=== PATIENT | male | born 1980 | race Hispanic/Latino ===

== ENCOUNTER 2020-02-17 03:25 | Inpatient (IN) | payer SELFPAY ==
--- NOTE | ~2020-02-17 | XR_ITS ---
EXAMINATION: XR shoulder RT min 2V EXAM DATE: 02/17/2020 04:23 INDICATION: No known recent injury provided at this time. Pain of the right shoulder. TECHNIQUE: The following right shoulder projections obtained: frontal projection with internal rotati on, frontal projection with external rotation, Grashey, and scapular Y view (4+ views). There is no prior study for comparison. FINDINGS: No evidence of right shoulder rotator cuff calcific tendinosis. There is mild acromiocla vicular joint primary osteoarthritis.. Glenohumeral joint unremarkable. There are no acute fractures or dislocations identified. There is no subcutaneous gas. The soft tissue is unremarkable. There are no radiopaque foreign bodies. IMPRESSION: Mild right acromioclavicular joint osteoarthritis. Reviewed, dictated and finalized at location A.
--- NOTE | ~2020-02-17 | US_ITS ---
EXAMINATION: US soft tissue upper back DATE: 02/19/2020 16:26 INDICATION: Right upper back pain/mass TECHNIQUE: Multiple grayscale and Doppler ultrasound images of the region of concern at the posterior right shoulder/back were obtained. COMPARISON: None FINDINGS: Normal appearance to the subcutaneous fat and underlying musculature at the region of concern. No abn ormal masses, fluid collections or hyperemia on color Doppler. IMPRESSION: 1. No etiology identified for reported right upper back pain/mass. Reviewed, dictated and finalized at location A.
--- NOTE | ~2020-02-17 | XR_ITS ---
EXAMINATION: XR chest 1V portable EXAM DATE: 02/17/2020 06:10 INDICATION: Right-sided chest pain. TECHNIQUE: Portable AP frontal chest x-ray was obtained. There is no prior study for comparison. FINDINGS: The lungs are clear. There are no pleural effusions. The cardiomediastinal silhouette is within normal limits. There is no pneumothorax suspected. The bones and soft tissues are unremarkab le. IMPRESSION: No acute cardiopulmonary findings. Reviewed, dictated and finalized at location A.
--- NOTE | ~2020-02-17 | CT_ITS ---
EXAMINATION: CT shoulder RT wo con DATE: 02/18/2020 12:38 INDICATION: Right shoulder pain. TECHNIQUE: Computed tomography (CT) of the right shoulder was performed without intravenous contrast. Automated exposure control and iterative reconstruction technique were employed. The dose-length pro duct was 609.67 mGy-cm. COMPARISON: Right shoulder radiographs 02/17/2020 FINDINGS: Bone alignment is normal. No fracture. There is mild osteoarthritis of acromioclavicular devora int and glenohumeral joint. No glenohumeral joint effusion. There is no asymmetric fatty atrophy of t he rotator cuff muscle bellies. IMPRESSION: 1. Mild polyarticular osteoarthritis. Reviewed, dictated and finalized at location A.
[2020-02-17 03:30] VITALS: BP 153/101; PULSE 87; RESP 18; TEMP 36.3; O2SAT 100
--- NOTE | 2020-02-17 03:55 | ED.EXTPRO ---
HPI - Extremity Problem General Chief complaint: Extremity Problem,Nontraumatic Stated complaint: right shoulder pain Time Seen by Provider: 02/17/20 03:29 Source: RN notes reviewed History of Present Illness HPI Narrative: Patient presents emergency department from home for right shoulder pain. Patient states symptoms began approximately 2 hours ago. States he has pain in the right superior posterior shoulder with muscle spasm present. 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 He denies any known trauma or injury. States this affected his back before as well as his hands are extremities he denies any fevers or chills chest pain shortness of breath or any other symptoms at this time states he took no previous pain medication Related Data Allergies Allergy/AdvReac Type Severity Reaction Status Date / Time No Known Allergies Allergy Unverified 07/10/15 14:44 Review of Systems Review of Systems: Narrative: Gen.: Denies fevers or chills ENT: Denies congestion Respiratory: Denies shortness of breath or cough CV: Denies chest pain or palpitations GI: Denies abdominal pain nausea, emesis or diarrhea Musculoskeletal: See HPI Neuro: Denies numbness, tingling, weakness or focal weakness Skin: Denies rash Except as documented, all other systems reviewed and negative FORMERLY [facility] Past Medical History Medical History (Updated 02/17/20 @ 06:18 by Jesus Manuel Hubbard DO) Raymond disease Social History Social History (Updated 02/17/20 @ 03:57 by Jesus Manuel Hubbard DO) Smoking status: Never smoker Exam Narrative: Exam Narrative: APPEARANCE: No acute distress, nontoxic, resting in bed EYES: EOMI HEENT: Normocephalic, atraumatic, OMM Neck: No midline tenderness to palpation, tender to palpation of the right trapezius muscle with muscle spasm palpated RESPIRATORY: No respiratory distress Clear to auscultation bilaterally with no rhonchi wheezing or rales. CARDIOVASCULAR: Regular rate and rhythm without murmurs rubs or gallops. ABDOMINAL: Soft, nontender, nondistended, no rebound or guarding MUSCULOSKELETAl: Moves all extremities. No clubbing, cyanosis or edema. Tender palpation of the right superior posterior shoulder, pain with movement of the right shoulder no tenderness of the right elbow or wrist, radial pulse 2+, neurovascular intact NEURO: Awake and alert. Following commands, speech normal, no focal deficits SKIN:: Warm, dry. No rashes lesions or abrasions PSYCHIATRIC: Normal affect/mood, Course Course Emergency Course: Discussed Dr. eBdoya presentation work-up. Agrees with admission at this time Discussed with patient and family results of workup and diagnosis. Discussed need for admission. Patient and family understand and agree to current treatment plan Vital Signs Vital signs: Vital Signs Temperature 97.3 F L 02/17/20 03:30 Pulse Rate 87 02/17/20 03:30 Respiratory Rate 18 02/17/20 03:30 Blood Pressure 153/101 H 02/17/20 03:30 Pulse Oximetry 100 02/17/20 03:30 Temperature 97.3 F L 02/17/20 03:30 Pulse Rate 87 02/17/20 03:30 Respiratory Rate 18 02/17/20 03:30 Blood Pressure 153/101 H 02/17/20 03:30 Pulse Oximetry 100 02/17/20 03:30 MDM - Extremity (Nontraumatic) Lab Data Result diagrams: 02/17/20 04:03 02/17/20 04:03 Labs: Lab Results 02/17/20 02/17/20 Range/Units 04:03 04:03 WBC 18.2 H (4.5-10.0) K/mm3 RBC 5.17 (4.6-6.20) M/mm3 Hgb 16.4 (14.0-18.0) g/dL Hct 47.2 (42.0-52.0) % MCV 91.3 (80-100) fl MCH 31.7 (26-34) pg MCHC 34.7 (32-36) g/dl RDW 12.8 (11.5-14.5) % Plt Count 343 (150-375) k/mm3 MPV 8.8 (7.4-10.4) fl Immature Gran % (Auto) 0.5 (0-0.5) % Neut % (Auto) 66.3 (45.5-73.1) % Lymph % (Auto) 23.5 (18.3-44.2) % [place] % (Auto) 8.0 (2.6-8.5) % Eos % (Auto) 1.3 (0-4.4) % Baso % (Auto) 0.4 (0.2-1.2) % Lymph # (Auto) 4.2
[2020-02-17] MEDS: MORPHINE SULFATE (*CRX) 4 MG/ML INJ IV PUSH ×5 (04:03→23:25)
[2020-02-17 04:11] LABS: Basophils Absolute Auto 0.1 K/mm3 (0.0-0.1); Basophils Percent Auto 0.4 % (0.2-1.2); Eosinophils Absolute Auto 0.2 K/mm3 (0-0.3); Eosinophils Percent Auto 1.3 % (0-4.4); Hematocrit 47.2 % (42.0-52.0); Hemoglobin 16.4 g/dL (14.0-18.0); Immature Granulocyte Absolute 0.09 K/mm3 (0.00-0.031); Immature Granulocyte Percent A 0.5 % (0-0.5); Lymphocytes Absolute Auto 4.28 K/mm3 (0.9-3.2); Lymphocytes Percent Auto 23.5 % (18.3-44.2); Mean Corpuscular HGB Conc 34.7 g/dl (32-36); Mean Corpuscular Hemoglobin 31.7 pg (26-34); Mean Corpuscular Volume 91.3 fl (80-100); Mean Platelet Volume 8.8 fl (7.4-10.4); Monocytes Absolute Auto 1.5 K/mm3 (0.1-0.6); Neutrophils Absolute Auto 12.1 K/mm3 (1.3-6.7); Neutrophils Percent Auto 66.3 % (45.5-73.1); Platelet Count Result 343 k/mm3 (150-375); Red Blood Count 5.17 M/mm3 (4.6-6.20); Red Cell Distribution Width 12.8 % (11.5-14.5); White Blood Count 18.2 K/mm3 (4.5-10.0)
[2020-02-17 04:24] LABS: Alanine Aminotransferase 255 U/L (4-50); Albumin Level 4.6 g/dL (3.5-5.1); Alkaline Phosphatase 71 U/L (38-126); Anion Gap 7 mmol/L (8-16); Aspartate Amino Transferase 320 U/L (17-59); Bilirubin,Total 0.6 mg/dL (0.2-1.3); Blood Urea Nitrogen 13 mg/dL (9-20); Calcium 9.5 mg/dL (8.4-10.2); Carbon Dioxide 30 mmol/L (22-30); Chloride 101 mmol/L (98-107); Estimated Glomerular Filt Rate > 60; Glucose 131 mg/dL (75-110); Sodium 138 mmol/L (137-145)
[2020-02-17] MEDS: SODIUM CHLORIDE 0.9% IV 1,000 ML 999 ML IV CONT ×2 (04:44→05:25)
[2020-02-17 05:12] LABS: Creatine Kinase > 24000 U/L (55-170)
[2020-02-17] MEDS: MORPHINE SULFATE (*CRX) 2 MG/ML INJ IV PUSH (05:47)
[2020-02-17 06:19] VITALS: BP 148/96; PULSE 71; RESP 18; O2SAT 96
[2020-02-17 06:27] LABS: Add Urine Microscopic? YES; Appearance Urine Clear (Clear); Bilirubin Urine Negative (Negative); Blood Urine 3+ (Negative); Color Urine Straw (Yellow); Glucose Urine UA Negative (Negative); Ketones Urine Negative (Negative); Leukocyte Esterase Ur Negative LEU/UL (Negative); Mucus Urine Rare /lpf; Nitrate Urine Negative (Negative); Protein Urine Negative (Negative); Specific Grav Ur 1.012 (1.001-1.035); Urobilinogen Urine Negative mg/dL (<2.0); WBC Urine 0-3 /hpf
[2020-02-17 07:30] VITALS: BP 161/101; PULSE 80; RESP 20; TEMP 36.6; O2SAT 98; BMI 31.3
--- NOTE | 2020-02-17 07:30 | ADMGEN ---
This patient, Jesse Gamble, was admitted to 2 Medical Room 251-01. Patient/family oriented to hospital policies and general routines including ID bracelet, bed and alarms, visiting hours, pain management, procedures, bathroom and other care routines, personal items, smoking policy, room service/diet, and visiting hours. Valuables list has been completed. Information on how to activate the Rapid Response Team has been discussed. Patient/Family are encouraged to report perceived risks to care and to ask questions if they do not understand what they are told or what they should do.
[2020-02-17] MEDS: SODIUM CHLORIDE 0.9% IV 1,000 ML 150 ML IV CONT ×3 (08:11→23:26)
[2020-02-17 14:00] VITALS: BP 169/104; PULSE 75; RESP 19; TEMP 36.8; O2SAT 97
[2020-02-17] MEDS: CYCLOBENZAPRINE HCL 5 MG TABLET PO (15:18)
--- NOTE | 2020-02-17 18:08 | PM.IMHP ---
H&P: HPI History of Present Illness Date/Time: 02/17/20 18:08 Chief complaint: Rhabdomyolydid, Raymond's disease Narrative: date of visit 02/160. Jesse Gamble is a 39 year old male with history of GSD5 (McArdles disease) who yesterday evening awoke severe pain in his right shoulder. He presents emergency room was found to have markedly elevated CK and was admitted for rhabdo. He has had no trauma and he says he has not been doing anything unusually different exercise nayak the last few days. He works a physical job in [employer] but has not worked since Monday the and had been doing well. 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 Hospitalized last bowel 5 years ago. States that he has had mild episodes that he stays home takes Tylenol rests and resolves. shoulder has been tight, no paresthesias Review of Systems Review of Systems: Narrative: constitutional weight steady appetite good no fever no chills Eye no double vision scotoma mouth no pharyngitis laryngitis CV no chest pain palpitation GI no melena hematochezia diarrhea constipation no dysuria hematuria muscle skeletal as per present illness neuro so seizures no syncope PMFSH Past Medical History Medical History (Updated 02/17/20 @ 18:25 by Daniel Simpson MD) Raymond disease Family History Family History (Updated 02/17/20 @ 18:19 by Daniel Simpson MD) Father , early 60s Acute myocardial infarction Mother , fib age 54 Diabetes mellitus Social History Social History (Updated 02/17/20 @ 18:20 by Daniel Simpson MD) Social History: works in [employer], rare ETOH or smoking, lives with and 2 daughters Smoking status: Current some day smoker Tobacco type: cigarettes Alcohol intake: current Substance use: never Gender identity (if verbalized by the patient): Male Spiritual care concerns: No Meds Home Medications and Allergies Home Medications Medication Instructions Recorded Confirmed Type atorvastatin 40 mg PO DAILY 02/17/20 02/17/20 History ergocalciferol (vitamin D2) 1,250 mcg PO WEEKLY 02/17/20 02/17/20 History [Vitamin D2] Allergies Allergy/AdvReac Type Severity Reaction Status Date / Time No Known Allergies Allergy Verified 02/17/20 06:52 Vital Signs Vital Signs - 24 hr 02/17/20 03:30 02/17/20 06:19 02/17/20 07:30 Temperature 36.3 C L 36.6 C Pulse Rate 87 71 80 Respiratory Rate 18 18 20 Blood Pressure 153/101 H 148/96 H 161/101 H Pulse Oximetry 100 96 98 02/17/20 14:00 Temperature 36.8 C Pulse Rate 75 Respiratory Rate 19 Blood Pressure 169/104 H Pulse Oximetry 97 Exam Narrative: Exam Narrative: blood pressure 162/100 pulse is 75 afebrile in apparent distress from the pain in his shoulder pupils equal reactive to light sclera anicteric mouth normal neck supple no adenopathy thyromegaly carotid bruits lungs clear CV regular rate rhythm no murmurs or gallops abdomen is soft nontender no masses extremities dorsalis pedis posterior tibial 2+ symmetrical and radial pulses are 2+ symmetrical right shoulder and pectoralis muscles are tight and slightly tender to palpation, pain with active or passive range of motion of the shoulder neuro alert cranial nerves 2-12 intact no focal deficits, neuro sensation intact right arm affect appropriate and an apparent pain H&P: Results Labs Labs: Short CBC 02/17/20 Range/Units 04:03 WBC 18.2 H (4.5-10.0) K/mm3 Hgb 16.4 (14.0-18.0) g/dL Hct 47.2 (42.0-52.0) % Plt Count 343 (150-375) k/mm3 BMP 02/17/20 04:03 Sodium 138 Potassium 4.0 Chloride 101 Carbon Dioxide 30 BUN 13 Creatinine 0.80 Glucose 131 H Calcium 9.5 Cardiac Enzymes 02/17/20 Range/Units 04:03 Total Creatine Kinase > 63599 H (55-170) U/L Liver Function
[2020-02-17] MEDS: hydrALAZINE HCL 20 MG/ML VIAL 10 MG IV PUSH (18:24)
[2020-02-17 19:18] VITALS: BP 143/82
[2020-02-17] MEDS: ENOXAPARIN 40 MG/0.4 ML SYRINGE SUB-Q (20:25)
[2020-02-17 20:37] VITALS: BP 148/81; PULSE 83; RESP 18; TEMP 36.8; O2SAT 95
[2020-02-18 05:59] VITALS: BP 142/90; PULSE 84; RESP 16; TEMP 36.9; O2SAT 96
[2020-02-18] MEDS: SODIUM CHLORIDE 0.9% IV 1,000 ML 150 ML IV CONT ×3 (06:02→21:43)
[2020-02-18] MEDS: CYCLOBENZAPRINE HCL 5 MG TABLET PO (06:08)
[2020-02-18 06:14] LABS: Basophils Absolute Auto 0.1 K/mm3 (0.0-0.1); Basophils Percent Auto 0.6 % (0.2-1.2); Eosinophils Absolute Auto 0.3 K/mm3 (0-0.3); Hematocrit 46.1 % (42.0-52.0); Hemoglobin 16.1 g/dL (14.0-18.0); Immature Granulocyte Absolute 0.07 K/mm3 (0.00-0.031); Immature Granulocyte Percent A 0.5 % (0-0.5); Lymphocytes Absolute Auto 3.63 K/mm3 (0.9-3.2); Lymphocytes Percent Auto 28.2 % (18.3-44.2); Mean Corpuscular HGB Conc 34.9 g/dl (32-36); Mean Corpuscular Hemoglobin 31.2 pg (26-34); Mean Corpuscular Volume 89.3 fl (80-100); Mean Platelet Volume 8.7 fl (7.4-10.4); Monocytes Absolute Auto 0.8 K/mm3 (0.1-0.6); Monocytes Percent Auto 6.1 % (2.6-8.5); Neutrophils Percent Auto 62.6 % (45.5-73.1); Platelet Count Result 328 k/mm3 (150-375); Red Blood Count 5.16 M/mm3 (4.6-6.20); Red Cell Distribution Width 12.7 % (11.5-14.5); White Blood Count 12.9 K/mm3 (4.5-10.0)
[2020-02-18 06:27] LABS: Alanine Aminotransferase 220 U/L (4-50); Alkaline Phosphatase 70 U/L (38-126); Anion Gap 5 mmol/L (8-16); Aspartate Amino Transferase 218 U/L (17-59); Bilirubin,Total 0.6 mg/dL (0.2-1.3); Blood Urea Nitrogen 9 mg/dL (9-20); Calcium 9.2 mg/dL (8.4-10.2); Carbon Dioxide 29 mmol/L (22-30); Chloride 100 mmol/L (98-107); Estimated CRCL calculation 135 ml/min; Estimated Glomerular Filt Rate > 60; Glucose 124 mg/dL (75-110); Potassium 4.1 mmol/L (3.4-5.0); Sodium 134 mmol/L (137-145)
[2020-02-18 07:26] LABS: Hepatitis B Surface Antigen Negative (Negative)
[2020-02-18 07:30] LABS: Creatine Kinase 12288 U/L (55-170)
[2020-02-18 07:32] LABS: HAV RESULT Negative (Negative); Hepatitis B Core IgM Result Negative (Negative)
[2020-02-18 07:43] LABS: Hepatitis C Virus Antibody Negative (Negative)
--- NOTE | 2020-02-18 09:00 | ECG_ITS ---
Measurements Intervals [place] Rate: 79 P: 20 MD: 147 QRS: -24 QRSD: 104 T: 13 QT: 366 QTc: 420 Interpretive Statements SINUS RHYTHM NORMAL ECG Electronically Signed On 02-18-2020 9:29:03 CDT by Ayo Veras D.O.
[2020-02-18] MEDS: polyethylene glycoL 3350 17 GM POWD.PACK PO (09:07)
[2020-02-18] MEDS: HYDROcodone/acetaminophen (*CRX) 5-325 MG TABLET 1 TAB PO ×3 (09:07→21:43)
--- NOTE | 2020-02-18 11:01 | PM.IMPN ---
Progress Note: A&P Assessment and Plan (1) Rhabdomyolysis: Code(s): M62.82 - Rhabdomyolysis Status: Acute Assessment and Plan: TCK >24K on admission with 3+ blood in urine. Started on aggressive hydration. Renal function stable. TCK down to 12K already. Continue the same. (2) Right shoulder pain: Code(s): M25.511 - Pain in right shoulder Status: Acute Assessment and Plan: Right shoulder pain felt related to rhabdo. Will check CT scan to further evaluate. CT scan shoiwng no acute processes to explain the pain. Contineut above tratment (3) Elevated LFTs: Code(s): R79.89 - Other specified abnormal findings of blood chemistry Status: Acute Assessment and Plan: Probably secondary to rhabdo. Hepatitis profile negative. Repeat levels trending down. Continue to follow. (4) Raymond disease: Code(s): E74.04 - Raymond disease Status: Acute Assessment and Plan: Etiology of the rhabdomyolysis. (5) Leukocytosis: Code(s): D72.829 - Elevated white blood cell count, unspecified Status: Acute Assessment and Plan: Probably reactive. Repeat WBC better. Will continue to follow (6) Hypertension: Code(s): I10 - Essential (primary) hypertension Status: Acute Assessment and Plan: BP elevated at times but improved since admission. Some elvation secondary to pain. May have underlying undiagnosed hypertension. EKG normal. Contineu p.r.n. hydralazine (7) DVT prophylaxis: Code(s): Z29.9 - Encounter for prophylactic measures, unspecified Status: Acute Assessment and Plan: Lovenox Subjective Date/time seen: 02/18/20 11:01 Interval history: Date of service 02/17 39yo male with Raymond disease here for right shoulder pain and found to have rhabdomyolysis. No issues overnight. Right shoulder pain is better. Pain is mostly at the top part of his right trapezius. no neck pain. Right arm power is better. Denies any trauma. No other myalgias. No fever or chills. Exam Narrative: Exam Narrative: AF 98.4 142/90 841 6 96% ra Gen - NARD Chest - CTA bilaterally, nml RR CV - RRR S1/S2 Abd - Soft, NT/ND, Positive BS Back - pain and swelling in the right top most portion of the right trapezius without discreet mass. No overlying erythema. Ext - No pedal edema; right shoulder ROM better. Neuro - Alert and oriented. Nonfocal exam. Psych - Nml mood and affect Skin - Warm and dry Returned to see patietn later in the evening per RN request: No numbness or tingling to the Rt UE. sack maker equal. Flex and extension at wrist okay. pain with abduction right shoulder. Objective Data Vital Signs Vital Signs: Vital Signs - 24 hr 02/17/20 14:00 02/17/20 19:18 02/17/20 20:37 Temperature 98.2 F 98.2 F Pulse Rate 75 83 Respiratory Rate 19 18 Blood Pressure 169/104 H 143/82 H 148/81 H Pulse Oximetry 97 95 02/18/20 05:59 Temperature 98.4 F Pulse Rate 84 Respiratory Rate 16 Blood Pressure 142/90 H Pulse Oximetry 96 Intake/Output Intake/Output: Intake & Output 02/15/20 02/16/20 02/17/20 02/18/20 23:59 23:59 23:59 23:59 Intake Total 4980 1830 Balance 4980 1830 Meds/Results Medications: Active Medications Generic Name Dose Route Start Last Admin Trade Name Freq PRN Reason Stop Dose Admin Acetaminophen 650 mg 02/17/20 14:05 Tylenol Tablet PO Q4H PRN Mild Pain (1-3) or Fever Hydrocodone Bitart/Acetaminophen 1 tab 02/17/20 18:06 02/18/20 09:07 [place] 5-325 Mg PO 1 tab Q6H PRN Administration Pain Rated 4-6 Enoxaparin Sodium 40 mg 02/17/20 21:00 02/17/20 20:25 Lovenox SUB-Q 40 mg HS HORACE Administration Hydralazine HCl 10 mg 02/17/20 18:04 02/17/20 18:24 Apresoline Hcl Inj IV PUSH 10 mg Q8H PRN Administration SBP > 160 Sodium Chloride 1,000 mls @ 150 mls/hr 02/17/20 05:35 01/21
[2020-02-18 14:00] VITALS: BP 152/99; PULSE 73; RESP 14; TEMP 36.6; O2SAT 95
[2020-02-18] MEDS: ENOXAPARIN 40 MG/0.4 ML SYRINGE SUB-Q (20:23)
[2020-02-18 22:00] VITALS: BP 148/93; PULSE 80; RESP 20; TEMP 36.6; O2SAT 98
[2020-02-19] MEDS: HYDROcodone/acetaminophen (*CRX) 5-325 MG TABLET 1 TAB PO ×2 (03:48→20:23)
[2020-02-19] MEDS: SODIUM CHLORIDE 0.9% IV 1,000 ML 150 ML IV CONT ×3 (03:48→18:09)
[2020-02-19 06:00] VITALS: BP 167/85; PULSE 71; RESP 20; TEMP 36.7; O2SAT 98
[2020-02-19 06:30] LABS: Hematocrit 45.7 % (42.0-52.0); Hemoglobin 15.9 g/dL (14.0-18.0); Mean Corpuscular HGB Conc 34.8 g/dl (32-36); Mean Corpuscular Hemoglobin 31.8 pg (26-34); Mean Corpuscular Volume 91.4 fl (80-100); Mean Platelet Volume 8.8 fl (7.4-10.4); Platelet Count Result 303 k/mm3 (150-375); White Blood Count 13.4 K/mm3 (4.5-10.0)
[2020-02-19 06:43] LABS: Alanine Aminotransferase 221 U/L (4-50); Alkaline Phosphatase 70 U/L (38-126); Anion Gap 6 mmol/L (8-16); Aspartate Amino Transferase 288 U/L (17-59); Bilirubin,Total 0.7 mg/dL (0.2-1.3); Blood Urea Nitrogen 12 mg/dL (9-20); Calcium 9.2 mg/dL (8.4-10.2); Carbon Dioxide 29 mmol/L (22-30); Chloride 101 mmol/L (98-107); Estimated CRCL calculation 135 ml/min; Estimated Glomerular Filt Rate > 60; Glucose 120 mg/dL (75-110); Sodium 136 mmol/L (137-145)
[2020-02-19 07:19] LABS: Creatine Kinase 13466 U/L (55-170)
[2020-02-19 08:11] VITALS: BP 152/92
[2020-02-19] MEDS: ACETAMINOPHEN 325 MG TABLET 650 MG PO (08:13)
[2020-02-19] MEDS: polyethylene glycoL 3350 17 GM POWD.PACK PO (08:13)
--- NOTE | 2020-02-19 11:02 | PM.IMPN ---
Progress Note: A&P Assessment and Plan (1) Rhabdomyolysis: Code(s): M62.82 - Rhabdomyolysis Status: Acute Assessment and Plan: TCK >24K on admission with 3+ blood in urine. Started on aggressive hydration. Renal function remaining stable. TCK about the same at 13K for unclear reasons. Continue the same. Check urine. Consider Lasix. Consider bicarb but serum at 29 (2) Right shoulder pain: Code(s): M25.511 - Pain in right shoulder Status: Acute Assessment and Plan: Right shoulder pain felt related to rhabdo. Suspect this is related to muscle spasm with focal muscle involvement. Discussed with radiology. Recommended US to exclude fluid collection. (3) Elevated LFTs: Code(s): R79.89 - Other specified abnormal findings of blood chemistry Status: Acute Assessment and Plan: Probably secondary to rhabdo. Hepatitis profile negative. Repeat AST levels up slightly with flat ALT. No abd pain. Will continue to follow for now. (4) Raymond disease: Code(s): E74.04 - Raymond disease Status: Acute Assessment and Plan: Etiology of the rhabdomyolysis. (5) Leukocytosis: Code(s): D72.829 - Elevated white blood cell count, unspecified Status: Acute Assessment and Plan: WBC 18K on admission felt to be reactive. Repeat WBC better yesterday but about the same today. Will continue to follow (6) Hypertension: Code(s): I10 - Essential (primary) hypertension Status: Acute Assessment and Plan: BP remains elevated at times but overall improved since admission. Some elevation secondary to pain and from IV fluids. May have underlying undiagnosed hypertension as well. EKG normal. Continue p.r.n. hydralazine. (7) DVT prophylaxis: Code(s): Z29.9 - Encounter for prophylactic measures, unspecified Status: Acute Assessment and Plan: Lovenox Additional Plan US normal. Subjective Date/time seen: 02/19/20 11:02 Interval history: Date of service 02/18 39yo male with Raymond disease here for right shoulder pain and found to have rhabdomyolysis. Slept well. Feels shoulder pain is better. He now states this has been noted before in previous episodes (mostly in low back but has had right shoulder pain with these episodes). Range of motion better. Exam Narrative: Exam Narrative: AF 98.1 152/92 71 20 98% ra Gen - NARD Chest - CTA bilaterally, nml RR CV - RRR S1/S2 Abd - Soft, NT/ND, Positive BS Back - pain and swelling in the right top most portion of the right trapezius without discreet mass. Ext - No pedal edema. strength intact but pain mostly with abduction of the right shoulder. Psych - Nml mood and affect Skin - no erythema to the right shoulder or back Objective Data Vital Signs Vital Signs: Vital Signs - 24 hr 02/18/20 14:00 02/18/20 22:00 02/19/20 06:00 Temperature 97.8 F 97.9 F 98.1 F Pulse Rate 73 80 71 Respiratory Rate 14 20 20 Blood Pressure 152/99 H 148/93 H 167/85 H Pulse Oximetry 95 98 98 02/19/20 08:11 Temperature Pulse Rate Respiratory Rate Blood Pressure 152/92 H Pulse Oximetry Intake/Output Intake/Output: Intake & Output 02/16/20 02/17/20 02/18/20 02/19/20 23:59 23:59 23:59 23:59 Intake Total 4980 5830 3060 Output Total 500 Balance 4980 5830 2560 Meds/Results Medications: Active Medications Generic Name Dose Route Start Last Admin Trade Name Freq PRN Reason Stop Dose Admin Acetaminophen 650 mg 02/17/20 14:05 02/19/20 08:13 Tylenol Tablet PO 650 mg Q4H PRN Administration Mild Pain (1-3) or Fever Hydrocodone Bitart/Acetaminophen 1 tab 02/17/20 18:06 02/19/20 03:48 [place] 5-325 Mg PO 1 tab Q6H PRN Administration Pain Rated 4-6 Enoxaparin Sodium 40 mg 02/17/20 21:00 02/18/20 20:23 Lovenox SUB-Q 40 mg HS HORACE Administration Hydralazine HCl 10 mg 02/17/20 18
[2020-02-19 13:22] LABS: Add Urine Microscopic? YES; Appearance Urine Clear (Clear); Bilirubin Urine Negative (Negative); Blood Urine 1+ (Negative); Color Urine Straw (Yellow); Glucose Urine UA Negative (Negative); Ketones Urine Negative (Negative); Leukocyte Esterase Ur Negative LEU/UL (Negative); Mucus Urine Rare /lpf; Nitrate Urine Negative (Negative); Protein Urine Negative (Negative); RBC Urine 0-2 /hpf (0-2); Squamous Epithelial Cell Urine Rare /hpf (Few); Urobilinogen Urine Negative mg/dL (<2.0); WBC Urine 0-3 /hpf
[2020-02-19 14:00] VITALS: BP 156/79; PULSE 90; RESP 18; TEMP 36.8; O2SAT 96
[2020-02-19 20:00] VITALS: BP 157/86; PULSE 86; RESP 20; TEMP 36.9; O2SAT 97
[2020-02-19] MEDS: ENOXAPARIN 40 MG/0.4 ML SYRINGE SUB-Q (21:58)
[2020-02-20] MEDS: SODIUM CHLORIDE 0.9% IV 1,000 ML 150 ML IV CONT ×4 (00:32→20:06)
[2020-02-20] MEDS: HYDROcodone/acetaminophen (*CRX) 5-325 MG TABLET 1 TAB PO ×2 (02:26→14:11)
[2020-02-20 04:00] VITALS: BP 146/83; PULSE 83; RESP 22; TEMP 36.4; O2SAT 97
[2020-02-20 05:47] LABS: Hematocrit 43.9 % (42.0-52.0); Mean Corpuscular HGB Conc 34.2 g/dl (32-36); Mean Corpuscular Hemoglobin 30.8 pg (26-34); Mean Corpuscular Volume 90.1 fl (80-100); Mean Platelet Volume 8.6 fl (7.4-10.4); Platelet Count Result 298 k/mm3 (150-375); Red Blood Count 4.87 M/mm3 (4.6-6.20); Red Cell Distribution Width 12.7 % (11.5-14.5); White Blood Count 13.4 K/mm3 (4.5-10.0)
[2020-02-20 06:02] LABS: Alanine Aminotransferase 188 U/L (4-50); Albumin Level 3.9 g/dL (3.5-5.1); Alkaline Phosphatase 68 U/L (38-126); Anion Gap 7 mmol/L (8-16); Aspartate Amino Transferase 189 U/L (17-59); Bilirubin,Total 0.6 mg/dL (0.2-1.3); Blood Urea Nitrogen 11 mg/dL (9-20); Calcium 9.4 mg/dL (8.4-10.2); Carbon Dioxide 30 mmol/L (22-30); Chloride 101 mmol/L (98-107); Estimated CRCL calculation 121 ml/min; Estimated Glomerular Filt Rate > 60; Glucose 121 mg/dL (75-110); Potassium 4.3 mmol/L (3.4-5.0); Sodium 138 mmol/L (137-145)
[2020-02-20 06:28] LABS: Creatine Kinase 7400 U/L (55-170)
[2020-02-20 14:00] VITALS: BP 142/76; PULSE 75; RESP 16; TEMP 36.4; O2SAT 98
--- NOTE | 2020-02-20 16:09 | PM.IMPN ---
Progress Note: A&P Assessment and Plan (1) Rhabdomyolysis: Code(s): M62.82 - Rhabdomyolysis Status: Acute Assessment and Plan: TCK >24K on admission with 3+ blood in urine. Most likely related to Raymond but he was on Lipitor on admisison. Started on aggressive hydration. Renal function remaining stable. TCK better at 7.4K. Continue the same. Continue to hold Lipitor. Lasix x 1. Check UA in am. No plans to continue Lipitor at discharge. (2) Right shoulder pain: Code(s): M25.511 - Pain in right shoulder Status: Acute Assessment and Plan: Right shoulder pain felt related to rhabdo. Suspect this is related to muscle spasm with focal muscle involvement. US showing no fluid collection. PT evaluation (3) Elevated LFTs: Code(s): R79.89 - Other specified abnormal findings of blood chemistry Status: Acute Assessment and Plan: Probably secondary to rhabdo. Hepatitis profile negative. Repeat levels trending down. No abd pain. Will continue to follow for now. (4) Raymond disease: Code(s): E74.04 - Raymond disease Status: Acute Assessment and Plan: Etiology of the rhabdomyolysis. (5) Leukocytosis: Code(s): D72.829 - Elevated white blood cell count, unspecified Status: Acute Assessment and Plan: WBC 18K on admission felt to be reactive. Probably reactive. Repeat WBC dropped to 13K and stable. Will continue to follow (6) Hypertension: Code(s): I10 - Essential (primary) hypertension Status: Acute Assessment and Plan: BP remains elevated at times but overall improved since admission. Some elevation secondary to pain and from IV fluids. May have underlying undiagnosed hypertension as well. EKG normal. Continue p.r.n. hydralazine. (7) DVT prophylaxis: Code(s): Z29.9 - Encounter for prophylactic measures, unspecified Status: Acute Assessment and Plan: Lovenox Subjective Date/time seen: 02/20/20 16:09 Interval history: Date of service 02/19 39yo male with Raymond disease here for right shoulder pain and found to have rhabdomyolysis. No complaints. Feels well. Good UOP. Exam Narrative: Exam Narrative: AF 97.6 142/76 75 18 98% ra Gen - NARD Chest - CTA bilaterally, nml RR CV - RRR S1/S2 Abd - Soft, NT/ND, Positive BS Ext - No pedal edema; right shoulder ROM better. Psych - Nml mood and affect Skin - Warm and dry Objective Data Vital Signs Vital Signs: Vital Signs - 24 hr 02/19/20 20:00 02/20/20 04:00 02/20/20 14:00 Temperature 98.4 F 97.6 F 97.6 F Pulse Rate 86 83 75 Respiratory Rate 20 22 H 16 Blood Pressure 157/86 H 146/83 H 142/76 H Pulse Oximetry 97 97 98 Intake/Output Intake/Output: Intake & Output 02/17/20 02/18/20 02/19/20 02/20/20 23:59 23:59 23:59 23:59 Intake Total 4980 5830 4940 3980 Output Total 500 Balance 4980 5830 4440 3980 Meds/Results Medications: Active Medications Generic Name Dose Route Start Last Admin Trade Name Freq PRN Reason Stop Dose Admin Acetaminophen 650 mg 02/17/20 14:05 02/19/20 08:13 Tylenol Tablet PO 650 mg Q4H PRN Administration Mild Pain (1-3) or Fever Hydrocodone Bitart/Acetaminophen 1 tab 02/17/20 18:06 02/20/20 14:11 [place] 5-325 Mg PO 1 tab Q6H PRN Administration Pain Rated 4-6 Enoxaparin Sodium 40 mg 02/17/20 21:00 02/19/20 21:58 Lovenox SUB-Q 40 mg HS HORACE Administration Hydralazine HCl 10 mg 02/17/20 18:04 02/17/20 18:24 Apresoline Hcl Inj IV PUSH 10 mg Q8H PRN Administration SBP > 160 Sodium Chloride 1,000 mls @ 150 mls/hr 02/17/20 05:35 02/20/20 14:06 Normal Saline Iv IV CONT 150 mls/hr .Q6H40M HORACE Administration Morphine Sulfate 4 mg 02/17/20 05:35 02/17/20 23:25 Morphine Sulfate Inj (*Crx) IV PUSH 4 mg Q2H PRN Administration Pain Rated 7-10 Ondansetron HCl 4 mg 02/16
[2020-02-20] MEDS: FUROSEMIDE INJ 40 MG/4 ML VIAL IV PUSH (17:54)
[2020-02-20 20:00] VITALS: PULSE 75; RESP 16; O2SAT 98
[2020-02-20] MEDS: ENOXAPARIN 40 MG/0.4 ML SYRINGE SUB-Q (20:06)
[2020-02-20 22:00] VITALS: BP 135/85; PULSE 75; RESP 16; TEMP 36.7; O2SAT 96
[2020-02-21] MEDS: HYDROcodone/acetaminophen (*CRX) 5-325 MG TABLET 1 TAB PO (00:25)
[2020-02-21] MEDS: SODIUM CHLORIDE 0.9% IV 1,000 ML 150 ML IV CONT (03:10)
[2020-02-21 06:00] VITALS: BP 119/71; PULSE 67; RESP 18; TEMP 36.6; O2SAT 99
[2020-02-21 06:04] LABS: Hematocrit 44.5 % (42.0-52.0); Hemoglobin 15.1 g/dL (14.0-18.0); Mean Corpuscular HGB Conc 33.9 g/dl (32-36); Mean Corpuscular Hemoglobin 31.3 pg (26-34); Mean Corpuscular Volume 92.3 fl (80-100); Platelet Count Result 297 k/mm3 (150-375); Red Blood Count 4.82 M/mm3 (4.6-6.20); White Blood Count 11.4 K/mm3 (4.5-10.0)
[2020-02-21 06:21] LABS: Alanine Aminotransferase 182 U/L (4-50); Alkaline Phosphatase 64 U/L (38-126); Anion Gap 7 mmol/L (8-16); Aspartate Amino Transferase 136 U/L (17-59); Bilirubin,Total 0.6 mg/dL (0.2-1.3); Blood Urea Nitrogen 12 mg/dL (9-20); Calcium 9.4 mg/dL (8.4-10.2); Carbon Dioxide 30 mmol/L (22-30); Chloride 100 mmol/L (98-107); Estimated CRCL calculation 121 ml/min; Estimated Glomerular Filt Rate > 60; Glucose 111 mg/dL (75-110); Potassium 4.2 mmol/L (3.4-5.0); Sodium 137 mmol/L (137-145)
[2020-02-21 06:23] LABS: Creatine Kinase 2980 U/L (55-170)
[2020-02-21] MEDS: FUROSEMIDE INJ 40 MG/4 ML VIAL 20 MG IV PUSH (08:41)
[2020-02-21 08:52] LABS: Appearance Urine Clear (Clear); Bilirubin Urine Negative (Negative); Color Urine Yellow (Yellow); Glucose Urine UA Negative (Negative); Ketones Urine Negative (Negative); Leukocyte Esterase Ur Negative LEU/UL (NEGATIVE); Nitrate Urine Negative (Negative); Protein Urine Negative (Negative); Urobilinogen Urine 0.2 mg/dL (<2.0)
[2020-02-21 09:11] LABS: Add Urine Microscopic? YES; Blood Urine Trace-Intact (Negative); Mucus Urine Rare /lpf; RBC Urine 0-2 /hpf (0-2); Squamous Epithelial Cell Urine Rare /hpf (Few); WBC Urine 0-3 /hpf (0-3)
--- NOTE | 2020-02-21 10:10 | PM.DS ---
DS: Admitting Diagnosis Admitting Diagnosis Admitting Diagnosis: Rhabdomyolydid, Raymond's disease DS: Discharge Diagnosis Discharge Diagnosis (1) Rhabdomyolysis: Code(s): M62.82 - Rhabdomyolysis Status: Acute Assessment and Plan: TCK >24K on admission with 3+ blood in urine. [place] related to Raymond disease but he is also on Lipitor (which was stopped). Started on aggressive hydration. Renal function remained stable. TCK better at 2.9K. UA showing trace blood. Patient eager for discharge and felt patient could continue hydration at home. Discussed at length. No plans to continue Lipitor. (2) Right shoulder pain: Code(s): M25.511 - Pain in right shoulder Status: Acute Assessment and Plan: Right shoulder pain felt related to rhabdo. Suspect this is related to muscle spasm with focal muscle involvement. US showing no fluid collection. PT evaluation provided exercises. Light duty or off work until improved. (3) Elevated LFTs: Code(s): R79.89 - Other specified abnormal findings of blood chemistry Status: Acute Assessment and Plan: Probably secondary to rhabdo. Hepatitis profile negative. Repeat levels trending down. No abd pain. 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 (5) Leukocytosis: Code(s): D72.829 - Elevated white blood cell count, unspecified Status: Acute Assessment and Plan: WBC 18K on admission felt to be reactive. Repeat WBC dropped to 11K and stable. (6) Hypertension: Code(s): I10 - Essential (primary) hypertension Status: Acute Assessment and Plan: BP remains elevated at times but overall improved since admission. [place] the elevated BP secondary to pain and from IV fluids. EKG normal. Lasix given last night and BP 119/71 this morning. Should improve off the IV fluids. 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 Please see H&P for details. Hospital Course: As above. Time Spent with Patient Time attestation: Total time spent providing and/or coordinating discharge services:32 minutes Time spent: Greater than 30 minutes Specific discharge activities: Patient education Exam Narrative: Exam Narrative: slept well. No complaints today. Right shoulder range of motion. Pain is much better. AF 119/71 67 18 99% ra Gen - NARD Chest - CTA bilaterally, nml RR CV - RRR S1/S2 Abd - Soft, NT/ND, Positive BS Ext - No pedal edema; right shoulder ROM better. Neuro - nml strength bilateral upper extremity. Nml sensation. Psych - Nml mood and affect Skin - Warm and dry DS: Data Data Completed and Pending Labs on day of discharge: Labs from last 24 hours 02/21/20 02/21/20 02/21/20 08:41 05:27 05:27 WBC 11.4 H RBC 4.82 Hgb 15.1 Hct 44.5 MCV 92.3 MCH 31.3 MCHC 33.9 RDW 13.0 Plt Count 297 MPV 9.0 Sodium 137 Potassium 4.2 Chloride 100 Carbon Dioxide 30 Anion Gap 7 L BUN 12 Creatinine 0.90 Estim Creat Clear Calc 121 Estimated GFR > 60 Glucose 111 H Calcium 9.4 Total Bilirubin 0.6 AST 136 H ALT 182 H Alkaline Phosphatase 64 Total Creatine Kinase 2980 H Total Protein 7.0 Albumin 4.0 Urine Color Yellow Urine Appearance Clear Urine pH 7.0 Ur Specific [place] 1.020 Urine Protein Negative Urine Glucose (UA) Negative Urine Ketones Negative Ur Blood (Man) Trace-intact Urine Nitrate Negative Urine Bilirubin Negative Urine Urobilinogen 0.2 Ur Leukocyte Esterase Negative Urine RBC 0-2 Urine WBC 0-3 Ur Squamous Epith Cells Rare Urine Mucus Rare Discharge Plan Discharge Attending physician on di
== END 2020-02-21 11:54 | disposition home or self-care (01) | DRG 351 ==
LOC: ANHED 06:20 → ANH2MED 06:25
PROVIDERS: Internal Medicine; Admitting Provider Family Medicine; Emergency Provider Emergency Medicine; Visit Provider Internal Medicine
DX: M62.82 Rhabdomyolysis (principal); E74.04 McArdle disease; M25.511 Pain in right shoulder; I10 Essential (primary) hypertension; F17.210 Nicotine dependence, cigarettes, uncomplicated; Z23 Encounter for immunization
CPT/HCPCS: 36415; 71045; 73030; 73200; 76604; 80053; 80074; 81001; 82550; 85025; 85027; 90471; 90653; 93005; 96361; 96374; 96375; 96376; 97161; 99285; A9270; G0008; G0378; G0379; J0360; J1650; J1940; J2270; J7030

== ENCOUNTER 2022-07-03 04:02 | Inpatient (IN) | payer MEDICAID, SELFPAY ==
[2022-07-03] VITALS (34 sets, daily range): BP systolic 150–187; BP diastolic 94–121; PULSE 63–91; RESP 16–28; TEMP 36.1–36.7; O2SAT 94–100; BMI 34.4
--- NOTE | ~2022-07-03 | XR_ITS ---
XR chest 2V DATE: 07/03/2022 04:51 INDICATION: Right-sided chest pain TECHNIQUE: AP and lateral views COMPARISON: 02/17/2020 portable AP chest FINDINGS: Normal heart size. There is mild aortic unfolding. No hilar or mediastinal enlargement. No pulmonary infiltrate or consolidation, pleural effusion or pulmonary vascular congestion or pneumotho rax. IMPRESSION: No active cardiopulmonary disease Reviewed, dictated and finalized at location A. INGS TIGHTENER
--- NOTE | ~2022-07-03 | XR_ITS ---
XR shoulder RT min 2V DATE: 07/03/2022 04:51 INDICATION: Shoulder pain TECHNIQUE: 4 views of right shoulder COMPARISON: None FINDINGS: No fracture or dislocation, periosteal reaction or bone destruction or abnormal soft tissue calcification. Normal alignment at the acromioclavicular and glenohumeral joints. IMPRESSION: Negative Reviewed, dictated and finalized at location A. AL HYGIENE TEACHER IMPRESSION: Negative
--- NOTE | ~2022-07-03 | CT_ITS ---
EXAMINATION: CT shoulder RT wo con DATE: 07/07/2022 17:56 INDICATION: Right shoulder pain. TECHNIQUE: Computed tomography (CT) of the right shoulder was performed without intravenous contrast. Automated exposure control and iterative reconstruction technique were employed. The dose-length pro duct was 676.17 mGy-cm. COMPARISON: Right shoulder radiographs 07/03/2022, CT 02/18/2020 FINDINGS: Bone alignment is normal. No fracture. There is mild osteoarthritis of acromioclavicular devora int and glenohumeral joint. There is no fatty atrophy of the rotator cuff muscle bellies. IMPRESSION: 1. Mild polyarticular osteoarthritis. Reviewed, dictated and finalized at location A. S COUNTERMAN
--- NOTE | 2022-07-03 04:12 | ECG_ITS ---
Measurements Intervals Hermann Rate: 85 P: 9 TX: 142 QRS: -18 QRSD: 101 T: 10 QT: 352 QTc: 420 Interpretive Statements SINUS RHYTHM COMPARED TO ECG 02/18/2020 09:22:38 NO SIGNIFICANT CHANGES Electronically Signed On 07-03-2022 8:30:13 COFFIN MAKER by Jeannie Kingsley M.D.
[2022-07-03 04:22] LABS: Basophils Absolute Auto 0.1 K/mm3 (0.0-0.1); Basophils Percent Auto 0.7 % (0.2-1.2); Eosinophils Absolute Auto 0.3 K/mm3 (0-0.3); Eosinophils Percent Auto 2.6 % (0-4.4); Hematocrit 45.3 % (42.0-52.0); Hemoglobin 15.6 g/dL (14.0-18.0); Immature Granulocyte Absolute 0.07 K/mm3 (0.00-0.031); Immature Granulocyte Percent A 0.6 % (0-0.5); Lymphocytes Absolute Auto 2.81 K/mm3 (0.9-3.2); Mean Corpuscular HGB Conc 34.4 g/dl (32-36); Mean Corpuscular Hemoglobin 30.9 pg (26-34); Mean Corpuscular Volume 89.7 fl (80-100); Mean Platelet Volume 8.9 fl (7.4-10.4); Monocytes Absolute Auto 0.6 K/mm3 (0.1-0.6); Monocytes Percent Auto 5.4 % (2.6-8.5); Neutrophils Absolute Auto 7.8 K/mm3 (1.3-6.7); Neutrophils Percent Auto 66.7 % (45.5-73.1); Platelet Count Result 296 k/mm3 (150-375); Red Blood Count 5.05 M/mm3 (4.6-6.20); Red Cell Distribution Width 12.3 % (11.5-14.5); White Blood Count 11.7 K/mm3 (4.5-10.0)
[2022-07-03 04:32] LABS: Prothrombin Time 12.7 Seconds (11.1-14.7)
[2022-07-03] MEDS: HYDROmorphone HCL INJ (*CRX) 1 MG/ML SYR 0.5 MG IV PUSH ×2 (04:32→05:28)
[2022-07-03 04:33] LABS: Partial Thromboplastin Time 26.3 SECONDS (22.3-36.8)
--- NOTE | 2022-07-03 04:33 | ED.GENADULT ---
HPI - General Adult General Chief complaint: Unspecified Stated complaint: Right sided chest pain, alphonso syndrome Time Seen by Provider: 07/03/22 04:17 History of Present Illness HPI narrative: this is a 41-year-old male with history of myocardial disease presenting with right shoulder pain. Patient said that while he was sleeping started experience cramping in shoulder back and chest muscles on the right. 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 Usually resolves with Tylenol but tonight that did not have any affect. The patient denies shortness of breath, nausea vomiting diaphoresis. Related Data Home Medications Medication Instructions Recorded Confirmed ergocalciferol (vitamin D2) 1,250 1,250 mcg PO WEEKLY 02/17/20 02/17/20 mcg (50,000 unit) capsule (Vitamin D2) Allergies Allergy/AdvReac Type Severity Reaction Status Date / Time No Known Allergies Allergy Verified 07/03/22 04:09 ON LICENSE OF [facility] Past Medical History Medical History Alphonso disease Family History Family History Father , early 60s Acute myocardial infarction Mother , fib age 54 Diabetes mellitus Social History Social History Social History: works in [employer], rare ETOH or smoking, lives with and 2 daughters Smoking status: Current some day smoker Tobacco type: cigarettes Alcohol intake: current Substance use: never Gender identity (if verbalized by the patient): Male Spiritual care concerns: No Exam Narrative: APPEARANCE: Patient appears uncomfortable Head: atraumatic. EYES: EOMI, NOSE: Atraumatic NECK: Trachea midline RESPIRATORY: No increased rate of breathing CARDIOVASCULAR: RRR, ABDOMINAL: Non-distended MUSCULOSKELETAl: patient is holding his right arm close to the body, he has tenderness and cramping of the muscles in the right deltoid, posterior shoulder girdle and right pectoral muscles. NEURO: Alert. Moving 4/4 extremities SKIN:: Warm, dry. 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 X-ray, lab work including a CPK and kidney function have been ordered. -DDX includes but is not limited to: Muscle cramps, Mcardles flare, rhabdo -Co-morbidities complicating care: Mcardles disease, diabetes -Social determinants of health: patient works in [employer]. He is active for his work. -External Chart Review: review of previous hospital records. Last time the patient had a McArdles flare he was found have a CPK of over 24,000 required admission for Rhabdomyolysis -Hx from independent Sources: at bedside -Discussion of Management/Consultants: -Independent interpretation of studies: CPK was ordered to evaluate for rhabdomyolysis. The results were delayed from the lab because they had to run multiple dilution tests. Patient will be treated for rhabdo. White blood cell count is mildly elevated at 11.7. Hemoglobin was normal chemistry revealed hyponatremia and hypochloremia. The patient has gotten 2 L of fluid. Glucose was elevated at 300. Mild increases in AST and ALT. Troponi
[2022-07-03 04:34] LABS: Alanine Aminotransferase 104 U/L (6-50); Albumin Level 4.5 g/dL (3.5-5.1); Alkaline Phosphatase 78 U/L (38-126); Anion Gap 6 mmol/L (8-16); Aspartate Amino Transferase 145 U/L (17-59); Bilirubin,Total 0.6 mg/dL (0.2-1.3); Blood Urea Nitrogen 15 mg/dL (9-20); Calcium 8.4 mg/dL (8.4-10.2); Carbon Dioxide 24 mmol/L (22-30); Chloride 96 mmol/L (98-107); Estimated Glomerular Filt Rate > 60; Glucose 300 mg/dL (65-110); Lipase 121 U/L (23-300); Potassium 4.5 mmol/L (3.4-5.0); Sodium 126 mmol/L (137-145)
[2022-07-03 04:44] LABS: Troponin I < 0.012 ng/mL (0.000-0.034)
[2022-07-03] MEDS: methocarbamoL 750 MG TABLET 1500 MG PO (04:50)
[2022-07-03] MEDS: KETOROLAC 15 MG/ML VIAL (*BKC) IV PUSH ×2 (04:51→10:44)
[2022-07-03] MEDS: SODIUM CHLORIDE 0.9% IV 2,000 ML 999 ML IV CONT (04:59)
[2022-07-03 06:36] LABS: Creatine Kinase 14971 U/L (55-170)
[2022-07-03 08:22] LABS: Influenza A QL RT-PCR Negative (Negative); Influenza B QL RT-PCR Negative (Negative); SARS-CoV-2 RNA PCR Negative
--- NOTE | 2022-07-03 08:36 | PM.IMHP ---
H&P: [facility] History of Present Illness Date/Time: 07/03/22 08:36 Chief Complaint: shoulder pain Narrative: 41 y/o M with PMH significant for rhabdomyolysis concerning for Raymond's syndrome is presenting with shoulder pain and found to have an elevated CK in the ER >14K. He states he had no trauma or overuse of his shoulder. He tried resting and drinking plenty of water at home. He states this is the third time he has had an episode this severe. He usually has painful myalgias that he associates with is Raymond's where he has to stop what he is doing, rest, and drink plenty of water. The episodes usually pass within a couple hours to a day or two. Every once in awhile, they become severe enough that he needs to come in for pain control and IVF. He was started on LR at 250 ml/hr and given pain control with dilaudid x 2, toradol x 1, robaxin x 1. LFTs noted to be elevated. CXR and shoulder XR ordered and official read still pending. Patient also noted to be hyponatremic with a sodium of 126. Flu, COVID negative, UA WNL. ECG sinus rhythm at 85 bpm. Chart review shows admission for the same in 02/2020 with shoulder pain, elevated LFTs and rhabdomyolysis. CK >24K 02/17/2020 and 2980 at d/c. LFTs noted to be AST 320/ALT 255, still elevated at d/c with AST 136/ALT 182. Review of Systems Review of Systems: 12 point review of systems was assessed and was negative except as noted in the HPI [facility] Past Medical History Medical History Raymond disease Family History Family History Father , early 60s Acute myocardial infarction Mother , fib age 54 Diabetes mellitus Social History Social History Social History: works in [employer], rare ETOH or smoking, lives with and 2 daughters Smoking packs per day: 0.1 Smoking cigarettes per day: 2.0 Smoking status: Former smoker Tobacco type: cigarettes Additional smoking assessment comments: social smoker Alcohol intake: never Drinks per week: 0 Substance use: never Substance use type: does not use Lack of Transportation: No Lack of Food: Never True Current Housing: I Have Housing Concerned About Future Housing: No Difficulty Paying Gas/Electric Bills: No Difficulty Paying for Meds: No Currently Unemployed: No Education: Grade School Difficulty w/ Childcare or Family Care: No Gender identity (if verbalized by the patient): Male Spiritual care concerns: No Meds Home Medications and Allergies Home Medications Medication Instructions Recorded Confirmed Type acetaminophen 325 mg tablet 325 mg PO Q6H PRN Pain 07/03/22 07/03/22 History (Tylenol) Allergies Allergy/AdvReac Type Severity Reaction Status Date / Time No Known Allergies Allergy Verified 07/03/22 04:09 Vital Signs Vital Signs - 24 hr 07/03/22 04:06 07/03/22 05:04 07/03/22 06:06 Temperature 97.9 F Pulse Rate 81 72 79 Respiratory Rate 20 18 16 Blood Pressure 177/108 H 171/114 H 166/105 H Pulse Oximetry 100 96 94 Oxygen Delivery Room Air 07/03/22 06:43 Temperature Pulse Rate 86 Respiratory Rate 18 Blood Pressure 161/102 H Pulse Oximetry 97 Oxygen Delivery Exam Narrative: General: No acute distress, alert and oriented per baseline HEENT: Atraumatic, normocephalic, mucous membranes moist CV: Regular rate and rhythm, S1, S2 Lungs: Clear to auscultation bilaterally, no rales or crackles noted, no wheezes, good air entry Abdomen: Soft, nontender, nondistended Extremities: Normal to inspection, painful palpation of shoulder with limited movement 2/2 pain Skin: No rashes noted, no lesions or wounds seen Psych: Euthymic, normal affect H&P: Results Labs Labs: Short CBC 07/03/22 Range/Units 04:16 WBC 11.7 H (4.5-10.0) K/mm3 Hgb 15.6 (14.0-18.0)
--- NOTE | 2022-07-03 08:55 | PC.NURSE ---
pt c/o increased pain. call placed to dr. gudino. states will order prn pain medications.
[2022-07-03] MEDS: LACTATED RINGERS 1,000 ML 250 ML IV CONT ×4 (09:50→22:40)
--- NOTE | 2022-07-03 10:31 | ADMGEN ---
This patient, Jesse Gamble, was admitted to [address] [place] [address] Room 315-02. Patient/family oriented to hospital policies and general routines including ID bracelet, bed and alarms, visiting hours, pain management, procedures, bathroom and other care routines, personal items, smoking policy, room service/diet, and visiting hours. Information on how to activate the Rapid Response Team has been discussed. Patient/Family are encouraged to report perceived risks to care and to ask questions if they do not understand what they are told or what they should do.
[2022-07-03 15:07] LABS: Creatine Kinase 10542 U/L (55-170)
[2022-07-03] MEDS: methocarbamoL 500 MG TABLET PO (15:46)
[2022-07-03] MEDS: HYDROmorphone HCL INJ (*CRX) 1 MG/ML SYR IV PUSH (18:28)
[2022-07-03 20:49] LABS: Glucose Point of Care 160 mg/dl (65-105)
[2022-07-04] VITALS (8 sets, daily range): BP systolic 136–151; BP diastolic 77–91; PULSE 60–79; RESP 14–18; TEMP 35.9–36.8; O2SAT 93–97
[2022-07-04] MEDS: LACTATED RINGERS 1,000 ML 250 ML IV CONT ×6 (02:43→21:57)
[2022-07-04 05:52] LABS: Basophils Absolute Auto 0.1 K/mm3 (0.0-0.1); Basophils Percent Auto 0.4 % (0.2-1.2); Eosinophils Absolute Auto 0.3 K/mm3 (0-0.3); Eosinophils Percent Auto 2.8 % (0-4.4); Hematocrit 45.7 % (42.0-52.0); Hemoglobin 15.9 g/dL (14.0-18.0); Immature Granulocyte Absolute 0.06 K/mm3 (0.00-0.031); Immature Granulocyte Percent A 0.5 % (0-0.5); Lymphocytes Absolute Auto 3.19 K/mm3 (0.9-3.2); Mean Corpuscular HGB Conc 34.8 g/dl (32-36); Mean Corpuscular Hemoglobin 31.7 pg (26-34); Mean Corpuscular Volume 91.2 fl (80-100); Monocytes Absolute Auto 0.8 K/mm3 (0.1-0.6); Monocytes Percent Auto 7.1 % (2.6-8.5); Neutrophils Percent Auto 61.2 % (45.5-73.1); Platelet Count Result 267 k/mm3 (150-375); Red Blood Count 5.01 M/mm3 (4.6-6.20); Red Cell Distribution Width 12.6 % (11.5-14.5); White Blood Count 11.4 K/mm3 (4.5-10.0)
[2022-07-04 06:07] LABS: Alanine Aminotransferase 96 U/L (6-50); Albumin Level 4.1 g/dL (3.5-5.1); Alkaline Phosphatase 73 U/L (38-126); Anion Gap 6 mmol/L (8-16); Aspartate Amino Transferase 124 U/L (17-59); Bilirubin,Total 0.7 mg/dL (0.2-1.3); Blood Urea Nitrogen 10 mg/dL (9-20); Calcium 8.5 mg/dL (8.4-10.2); Carbon Dioxide 26 mmol/L (22-30); Chloride 103 mmol/L (98-107); Estimated CRCL calculation 135 ml/min; Estimated Glomerular Filt Rate > 60; Glucose 155 mg/dL (65-110); Sodium 135 mmol/L (137-145)
[2022-07-04 06:53] LABS: Hemoglobin A1C 8.4 % (<5.7)
[2022-07-04 06:54] LABS: Creatine Kinase 7448 U/L (55-170)
[2022-07-04] MEDS: HYDROmorphone HCL INJ (*CRX) 1 MG/ML SYR IV PUSH ×4 (06:59→23:08)
[2022-07-04 07:55] LABS: Glucose Point of Care 173 mg/dl (65-105)
--- NOTE | 2022-07-04 08:10 | PM.IMPN ---
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 Status: Acute Assessment and Plan: here with rhabdo, IVF with LR at 250 ml/hr significant pain in shoulder, likely associated myositis, dilaudid prn 07/04: much improved, cont pain control, IVF, CK down 7448 today from [id number] (2) Elevated LFTs: Code(s): R79.89 - Other specified abnormal findings of blood chemistry Status: Acute Assessment and Plan: unsure of etiology, will obtain prior workup and check hepatitis panel 07/04: improving, likely 2/2 rhabdo (3) Rhabdomyolysis: Code(s): M62.82 - Rhabdomyolysis Status: Acute Assessment and Plan: LR at 250 ml/hr, trend CK, improving (4) Right shoulder pain: Code(s): M25.511 - Pain in right shoulder Status: Acute Assessment and Plan: shoulder xray negative, suspect myositis pain from rhabdo, improving (5) Diabetes: Code(s): E11.9 - Type 2 diabetes mellitus without complications Status: Acute Assessment and Plan: A1c 8.4, family life educator consult ordered, start patient on metformin at discharge, will need close outpatient follow up for this Plan DVT prophylaxis with SCDs GI prophylaxis not indicated Code status full code Subjective Date/time seen: 07/04/22 08:10 Exam Narrative: General: No acute distress, alert and oriented per baseline HEENT: Atraumatic, normocephalic, mucous membranes moist CV: Regular rate and rhythm, S1, S2 Lungs: Clear to auscultation bilaterally, no rales or crackles noted, no wheezes, good air entry Abdomen: Soft, nontender, nondistended Extremities: Normal to inspection, painful palpation of shoulder with limited movement 2/2 pain Skin: No rashes noted, no lesions or wounds seen Psych: Euthymic, normal affect Objective Data Vital Signs Vital Signs: Vital Signs - 24 hr 07/03/22 10:00 07/03/22 08:15 07/03/22 08:30 Temperature Pulse Rate 67 78 Respiratory Rate 19 22 H 21 H Blood Pressure 160/94 H Pulse Oximetry 97 Oxygen Delivery 07/03/22 08:45 07/03/22 09:00 07/03/22 09:15 Temperature Pulse Rate 81 71 91 Respiratory Rate 22 H 21 H 28 H Blood Pressure Pulse Oximetry Oxygen Delivery 07/03/22 09:47 07/03/22 09:30 07/03/22 10:00 Temperature Pulse Rate 69 70 69 Respiratory Rate 20 24 H 19 Blood Pressure 152/95 H 160/94 H Pulse Oximetry 95 97 Oxygen Delivery 07/03/22 14:00 07/03/22 10:27 07/03/22 12:00 Temperature 98.1 F Pulse Rate 82 66 Respiratory Rate 22 H Blood Pressure 150/94 H Pulse Oximetry 98 Oxygen Delivery Room Air 07/03/22 16:00 07/03/22 20:15 07/03/22 21:50 Temperature 97.0 F L Pulse Rate 83 70 63 Respiratory Rate 16 Blood Pressure 161/99 H Pulse Oximetry 97 Oxygen Delivery 07/04/22 00:00 07/04/22 04:00 07/04/22 05:56 Temperature 97.1 F L Pulse Rate 60 62 79 Respiratory Rate 18 Blood Pressure 147/91 H Pulse Oximetry 96 Oxygen Delivery Intake/Output Intake/Output: Intake & Output 07/01/22 07/02/22 07/03/22 07/04/22 23:59 23:59 23:59 23:59 Intake Total 6356 1999 Balance 6356 1999 Meds/Results Medications: Active Medications Generic Name Dose Route Start Last Admin Trade Name Freq PRN Reason Stop Dose Admin Dextrose 12.5 gm 07/03/22 23:14 Dextrose 50% 25 Gm/50 Ml Syringe IV PUSH PRN PRN Hypoglycemia Protocol Glucagon 1 mg 07/03/22 23:14 Glucagon For Inj 1 Mg Vial IM PRN PRN Hypoglycemia Protocol Glucose 15 gm 07/03/22 23:14 Glucose Oral Gel 15 Gm Of Glucse In 37.5 Gm Tube PO PRN PRN Hypoglycemia Protocol Hydromorphone HCl 1 mg 07/03/22 16:09 07/04/22 06:59 Hydromorphone Hcl Inj (*Crx) 1 Mg/Ml Syr IV PUSH 1 mg Q3H PRN Administration Pain Rated 7-10 Lactated Ringer's 1,000 mls @ 250 mls/hr 07/03/22 0
[2022-07-04 11:54] LABS: Glucose Point of Care 198 mg/dl (65-105)
[2022-07-04 17:15] LABS: Glucose Point of Care 147 mg/dl (65-105)
[2022-07-04] MEDS: methocarbamoL 500 MG TABLET PO (20:53)
[2022-07-05] VITALS (9 sets, daily range): BP systolic 151–157; BP diastolic 83–96; PULSE 72–95; RESP 14–30; TEMP 36.1–36.7; O2SAT 92–96
[2022-07-05] MEDS: LACTATED RINGERS 1,000 ML 250 ML IV CONT ×6 (01:45→22:11)
[2022-07-05 07:51] LABS: Basophils Absolute Auto 0.1 K/mm3 (0.0-0.1); Basophils Percent Auto 0.5 % (0.2-1.2); Eosinophils Absolute Auto 0.2 K/mm3 (0-0.3); Eosinophils Percent Auto 1.3 % (0-4.4); Hematocrit 44.6 % (42.0-52.0); Hemoglobin 15.8 g/dL (14.0-18.0); Immature Granulocyte Absolute 0.08 K/mm3 (0.00-0.031); Immature Granulocyte Percent A 0.5 % (0-0.5); Lymphocytes Absolute Auto 2.52 K/mm3 (0.9-3.2); Lymphocytes Percent Auto 17.1 % (18.3-44.2); Mean Corpuscular HGB Conc 35.4 g/dl (32-36); Mean Corpuscular Hemoglobin 30.9 pg (26-34); Mean Corpuscular Volume 87.1 fl (80-100); Mean Platelet Volume 8.9 fl (7.4-10.4); Monocytes Absolute Auto 1.3 K/mm3 (0.1-0.6); Monocytes Percent Auto 8.5 % (2.6-8.5); Neutrophils Absolute Auto 10.6 K/mm3 (1.3-6.7); Neutrophils Percent Auto 72.1 % (45.5-73.1); Platelet Count Result 294 k/mm3 (150-375); Red Blood Count 5.12 M/mm3 (4.6-6.20); Red Cell Distribution Width 12.3 % (11.5-14.5); White Blood Count 14.7 K/mm3 (4.5-10.0)
[2022-07-05 08:01] LABS: Glucose Point of Care 186 mg/dl (65-105)
[2022-07-05 08:03] LABS: Potassium 3.8 mmol/L (3.4-5.0)
[2022-07-05 08:06] LABS: Alanine Aminotransferase 110 U/L (6-50); Albumin Level 4.4 g/dL (3.5-5.1); Alkaline Phosphatase 79 U/L (38-126); Anion Gap 9 mmol/L (8-16); Aspartate Amino Transferase 185 U/L (17-59); Blood Urea Nitrogen 9 mg/dL (9-20); Calcium 8.8 mg/dL (8.4-10.2); Carbon Dioxide 25 mmol/L (22-30); Chloride 100 mmol/L (98-107); Estimated CRCL calculation 152 ml/min; Estimated Glomerular Filt Rate > 60; Glucose 186 mg/dL (65-110); Sodium 134 mmol/L (137-145)
[2022-07-05] MEDS: HYDROmorphone HCL INJ (*CRX) 1 MG/ML SYR IV PUSH ×4 (08:12→20:27)
[2022-07-05 08:48] LABS: Creatine Kinase 10654 U/L (55-170)
[2022-07-05 08:52] LABS: Hepatitis B Surface Antigen Negative (Negative)
[2022-07-05 08:57] LABS: HAV RESULT Negative (Negative); Hepatitis B Core IgM Result Negative (Negative)
[2022-07-05 09:09] LABS: Hepatitis C Virus Antibody Negative (Negative)
[2022-07-05 11:38] LABS: Glucose Point of Care 208 mg/dl (65-105)
[2022-07-05] MEDS: INSULIN ASPART (*BKC) 100 UNITS/ML SUB-Q (11:55)
[2022-07-05] MEDS: methocarbamoL 500 MG TABLET PO (12:11)
--- NOTE | 2022-07-05 15:11 | PM.IMPN ---
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 Status: Acute Assessment and Plan: here with rhabdo, IVF with LR at 250 ml/hr significant pain in shoulder, likely associated myositis, dilaudid prn 07/04: much improved, cont pain control, IVF, CK down 7448 today from [id number] 07/05: a little worse today, CK back up to >10K, cont IVF and dilaudid prn shoulder pain, monitor (2) Elevated LFTs: Code(s): R79.89 - Other specified abnormal findings of blood chemistry Status: Acute Assessment and Plan: unsure of etiology, will obtain prior workup and check hepatitis panel 07/04: improving, likely 2/2 rhabdo 07/05: LFTs slightly worsened today, hepatitis panel negative, cont to monitor, doubt intrinsic hepatic pathology, but could consider US if they do not trend down soon (3) Rhabdomyolysis: Code(s): M62.82 - Rhabdomyolysis Status: Acute Assessment and Plan: LR at 250 ml/hr, trend CK, worsened a bit today, monitor (4) Right shoulder pain: Code(s): M25.511 - Pain in right shoulder Status: Acute Assessment and Plan: shoulder xray negative, suspect myositis pain from rhabdo, worsened after activity with showering, rest today and reassess tomorrow, cont dilaudid as needed (5) Diabetes: Code(s): E11.9 - Type 2 diabetes mellitus without complications Status: Acute Assessment and Plan: A1c 8.4, informatics educator consult ordered, start patient on metformin at discharge, will need close outpatient follow up for this Accuchecks + SSI for now FBG 186 07/05 Plan DVT prophylaxis with SCDs GI prophylaxis not indicated Code status full code Subjective Date/time seen: 07/05/22 15:11 Interval history: No overnight events noted. No chest pain or shortness of breath. No nausea, vomiting or diarrhea. No fevers or chills. Still with shoulder pain, a little improved today. He states yesterday after he took a shower his shoulder pain was excruciating and difficult to control overnight. Review of Systems Review of Systems: 12 point review of systems was assessed and was negative except as noted in the HPI Exam Narrative: General: No acute distress, alert and oriented per baseline HEENT: Atraumatic, normocephalic, mucous membranes moist CV: Regular rate and rhythm, S1, S2 Lungs: Clear to auscultation bilaterally, no rales or crackles noted, no wheezes, good air entry Abdomen: Soft, nontender, nondistended Extremities: Normal to inspection, painful palpation of shoulder with limited movement 2/2 pain, unable to abduct shoulder to 90? Skin: No rashes noted, no lesions or wounds seen Psych: Euthymic, normal affect Objective Data Vital Signs Vital Signs: Vital Signs - 24 hr 07/04/22 21:42 07/05/22 00:00 07/05/22 04:00 Temperature 98.3 F Pulse Rate 76 76 72 Respiratory Rate 14 Blood Pressure 136/77 Pulse Oximetry 95 07/05/22 05:45 07/05/22 14:00 Temperature 98.0 F 97.8 F Pulse Rate 79 88 Respiratory Rate 14 30 H Blood Pressure 152/83 H 157/96 H Pulse Oximetry 96 92 Intake/Output Intake/Output: Intake & Output 07/02/22 07/03/22 07/04/22 07/05/22 23:59 23:59 23:59 23:59 Intake Total 6356 7880 5220 Balance 6356 7880 5220 Meds/Results Medications: Active Medications Generic Name Dose Route Start Last Admin Trade Name Freq PRN Reason Stop Dose Admin Dextrose 12.5 gm 07/03/22 23:14 Dextrose 50% 25 Gm/50 Ml Syringe IV PUSH PRN PRN Hypoglycemia Protocol Glucagon 1 mg 07/03/22 23:14 Glucagon For Inj 1 Mg Vial IM PRN PRN Hypoglycemia Protocol Glucose 15 gm 07/03/22 23:14 Glucose Oral Gel 15 Gm Of Glucse In 37.5 Gm Tube PO PRN PRN Hypoglycemia Protocol Hydromorphone HCl 1 mg 07/03/22 16:09 07/05/22 13:15 Hydromorphone Hcl Inj (*Crx) 1 Mg/Ml Syr IV PUSH 1 mg Q3H PRN
[2022-07-05 16:22] LABS: Glucose Point of Care 197 mg/dl (65-105)
[2022-07-05 20:33] LABS: Glucose Point of Care 189 mg/dl (65-105)
[2022-07-06] VITALS (8 sets, daily range): BP systolic 135–154; BP diastolic 88–95; PULSE 79–105; RESP 16–18; TEMP 36.2–36.4; O2SAT 95–98; BMI 34.4
[2022-07-06] MEDS: HYDROmorphone HCL INJ (*CRX) 1 MG/ML SYR IV PUSH ×7 (00:28→22:27)
[2022-07-06] MEDS: LACTATED RINGERS 1,000 ML 250 ML IV CONT ×5 (02:11→19:17)
[2022-07-06] MEDS: methocarbamoL 500 MG TABLET PO ×2 (03:39→13:40)
[2022-07-06 07:52] LABS: Glucose Point of Care 171 mg/dl (65-105)
[2022-07-06 07:52] LABS: Basophils Absolute Auto 0.1 K/mm3 (0.0-0.1); Basophils Percent Auto 0.6 % (0.2-1.2); Eosinophils Absolute Auto 0.3 K/mm3 (0-0.3); Eosinophils Percent Auto 2.4 % (0-4.4); Hematocrit 44.2 % (42.0-52.0); Hemoglobin 15.1 g/dL (14.0-18.0); Immature Granulocyte Absolute 0.07 K/mm3 (0.00-0.031); Immature Granulocyte Percent A 0.6 % (0-0.5); Lymphocytes Percent Auto 21.1 % (18.3-44.2); Mean Corpuscular HGB Conc 34.2 g/dl (32-36); Mean Corpuscular Hemoglobin 31.1 pg (26-34); Mean Corpuscular Volume 91.1 fl (80-100); Mean Platelet Volume 9.2 fl (7.4-10.4); Monocytes Absolute Auto 1.1 K/mm3 (0.1-0.6); Monocytes Percent Auto 9.1 % (2.6-8.5); Neutrophils Absolute Auto 8.2 K/mm3 (1.3-6.7); Neutrophils Percent Auto 66.2 % (45.5-73.1); Platelet Count Result 286 k/mm3 (150-375); Red Blood Count 4.85 M/mm3 (4.6-6.20); Red Cell Distribution Width 12.6 % (11.5-14.5); White Blood Count 12.3 K/mm3 (4.5-10.0)
[2022-07-06 08:05] LABS: Alanine Aminotransferase 106 U/L (6-50); Albumin Level 4.2 g/dL (3.5-5.1); Alkaline Phosphatase 75 U/L (38-126); Anion Gap 7 mmol/L (8-16); Aspartate Amino Transferase 144 U/L (17-59); Bilirubin,Total 0.9 mg/dL (0.2-1.3); Blood Urea Nitrogen 10 mg/dL (9-20); Calcium 8.6 mg/dL (8.4-10.2); Carbon Dioxide 28 mmol/L (22-30); Chloride 99 mmol/L (98-107); Estimated CRCL calculation 135 ml/min; Estimated Glomerular Filt Rate > 60; Glucose 151 mg/dL (65-110); Sodium 134 mmol/L (137-145)
[2022-07-06 08:35] LABS: Creatine Kinase 6837 U/L (55-170)
[2022-07-06 11:51] LABS: Glucose Point of Care 201 mg/dl (65-105)
[2022-07-06] MEDS: INSULIN ASPART (*BKC) 100 UNITS/ML SUB-Q ×2 (12:03→18:29)
[2022-07-06 16:53] LABS: Glucose Point of Care 219 mg/dl (65-105)
--- NOTE | 2022-07-06 17:33 | PM.IMPN ---
Progress Note: A&P Assessment and Plan (1) Rhabdomyolysis: Code(s): M62.82 - Rhabdomyolysis Status: Acute Assessment and Plan: here with rhabdo, IVF with LR at 250 ml/hr significant pain in shoulder, likely associated myositis, dilaudid prn 07/04: much improved, cont pain control, IVF, CK down 7448 today from [id number] 07/05: a little worse today, CK back up to >10K, cont IVF and dilaudid prn shoulder pain, monitor 07/06: TCK better at 6800. Will decrease IV fluis and start lasix IV. Shoulder xray okay. Consider CT right shoulder if persistent pain. (2) Elevated LFTs: Code(s): R79.89 - Other specified abnormal findings of blood chemistry Status: Acute Assessment and Plan: unsure of etiology but felt related to the rhabdomyolysis. This occurred last admission. Hepatitis panel negative. LFTs are better today. 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 Continue pain management. Consider CT if does not improve. (5) Diabetes: Code(s): E11.9 - Type 2 diabetes mellitus without complications Status: Acute Assessment and Plan: A1c 8.4. The patient's blood glucose was reviewed on 07/06 Glucose remains reasonably well controlled. Continue AccuCheks covering with sliding scale. Hypoglycemia protocol available as needed. Continue to follow. critical care educator consult ordered Plan DVT prophylaxis with SCDs Code status full code Subjective Date/time seen: 07/06/22 17:33 Interval history: 41yo male with hx of hospitalizations for rhabdo here for right shoulder pain and found again to have rhabdomyolysis. Feels better overall. He has been up walking to the bathroom. He has no power to right upper extremity. He has pain with right shoulder. No numbness or tingling in the fingers. No chest pain or shortness of breath Exam Narrative: AF 97.2 154/89 83 18 97% ra Gen - NARD Chest - CTA bilaterally, nml RR CV - RRR S1/S2 Abd - Soft, NT/ND, Positive BS Ext - No pedal edema. 2+ radial pulses Neuro - normal mental health clinician. limited ROM to the right shoulder due to pain. Rt pronation and supination with pain at the extremes. Right wrist flexion and extension okay. Psych - Nml mood and affect Skin - Warm and dry Objective Data Vital Signs Vital Signs: Vital Signs - 24 hr 07/05/22 20:00 07/05/22 21:54 07/05/22 20:00 Temperature 97.0 F L Pulse Rate 84 87 Respiratory Rate 18 Blood Pressure 151/92 H Pulse Oximetry 96 Oxygen Delivery Room Air 07/06/22 00:00 07/06/22 04:00 07/06/22 05:36 Temperature 97.1 F L Pulse Rate 79 80 80 Respiratory Rate 16 Blood Pressure 135/95 H Pulse Oximetry 95 Oxygen Delivery 07/06/22 08:57 07/06/22 14:00 Temperature 97.2 F L Pulse Rate 83 Respiratory Rate 18 Blood Pressure 154/89 H Pulse Oximetry 97 Oxygen Delivery Room Air Intake/Output Intake/Output: Intake & Output 07/03/22 07/04/22 07/05/22 07/06/22 23:59 23:59 23:59 23:59 Intake Total 6356 7880 7710 4594 Balance 6356 7880 7710 4594 Meds/Results Medications: Active Medications Generic Name Dose Route Start Last Admin Trade Name Freq PRN Reason Stop Dose Admin Dextrose 12.5 gm 07/03/22 23:14 Dextrose 50% 25 Gm/50 Ml Syringe IV PUSH PRN PRN Hypoglycemia Protocol Glucagon 1 mg 07/03/22 23:14 Glucagon For Inj 1 Mg Vial IM PRN PRN Hypoglycemia Protocol Glucose 15 gm 07/03/22 23:14 Glucose Oral Gel 15 Gm Of Glucse In 37.5 Gm Tube PO PRN PRN Hypoglycemia Protocol Hydromorphone HCl 1 mg 07/03/22 16:09 07/06/22 15:24 Hydromorphone Hcl Inj (*Cr
[2022-07-06] MEDS: FUROSEMIDE INJ 40 MG/4 ML VIAL 20 MG IV PUSH (18:51)
[2022-07-06 20:58] LABS: Glucose Point of Care 159 mg/dl (65-105)
[2022-07-07] MEDS: LACTATED RINGERS 1,000 ML 150 ML IV CONT ×4 (01:30→23:16)
[2022-07-07] MEDS: HYDROmorphone HCL INJ (*CRX) 1 MG/ML SYR IV PUSH ×7 (01:31→21:33)
[2022-07-07 05:01] VITALS: BP 136/97; PULSE 83; RESP 18; TEMP 36.2; O2SAT 98
[2022-07-07 07:33] LABS: Basophils Absolute Auto 0.1 K/mm3 (0.0-0.1); Basophils Percent Auto 0.7 % (0.2-1.2); Eosinophils Absolute Auto 0.5 K/mm3 (0-0.3); Eosinophils Percent Auto 3.8 % (0-4.4); Hemoglobin 16.1 g/dL (14.0-18.0); Immature Granulocyte Absolute 0.06 K/mm3 (0.00-0.031); Immature Granulocyte Percent A 0.5 % (0-0.5); Lymphocytes Absolute Auto 2.56 K/mm3 (0.9-3.2); Lymphocytes Percent Auto 21.1 % (18.3-44.2); Mean Corpuscular HGB Conc 34.3 g/dl (32-36); Mean Corpuscular Hemoglobin 31.4 pg (26-34); Mean Corpuscular Volume 91.6 fl (80-100); Monocytes Absolute Auto 1.1 K/mm3 (0.1-0.6); Monocytes Percent Auto 9.2 % (2.6-8.5); Neutrophils Absolute Auto 7.9 K/mm3 (1.3-6.7); Neutrophils Percent Auto 64.7 % (45.5-73.1); Platelet Count Result 292 k/mm3 (150-375); Red Blood Count 5.13 M/mm3 (4.6-6.20); Red Cell Distribution Width 12.6 % (11.5-14.5); White Blood Count 12.1 K/mm3 (4.5-10.0)
[2022-07-07 07:38] LABS: Glucose Point of Care 158 mg/dl (65-105)
[2022-07-07 07:50] LABS: Alanine Aminotransferase 100 U/L (6-50); Albumin Level 4.4 g/dL (3.5-5.1); Alkaline Phosphatase 78 U/L (38-126); Anion Gap 5 mmol/L (8-16); Aspartate Amino Transferase 106 U/L (17-59); Bilirubin,Total 0.8 mg/dL (0.2-1.3); Blood Urea Nitrogen 13 mg/dL (9-20); Carbon Dioxide 30 mmol/L (22-30); Chloride 96 mmol/L (98-107); Estimated CRCL calculation 121 ml/min; Estimated Glomerular Filt Rate > 60; Glucose 150 mg/dL (65-110); Sodium 131 mmol/L (137-145)
[2022-07-07 08:07] LABS: Creatine Kinase 3037 U/L (55-170)
[2022-07-07] MEDS: FUROSEMIDE INJ 40 MG/4 ML VIAL 20 MG IV PUSH ×2 (09:25→17:42)
[2022-07-07 11:51] LABS: Glucose Point of Care 234 mg/dl (65-105)
[2022-07-07] MEDS: INSULIN ASPART (*BKC) 100 UNITS/ML SUB-Q (12:30)
[2022-07-07 14:00] VITALS: BP 132/80; PULSE 85; RESP 18; TEMP 36.2; O2SAT 96
[2022-07-07 16:18] LABS: Glucose Point of Care 147 mg/dl (65-105)
--- NOTE | 2022-07-07 17:22 | PM.IMPN ---
Progress Note: A&P Assessment and Plan (1) Rhabdomyolysis: Code(s): M62.82 - Rhabdomyolysis Status: Acute Assessment and Plan: Patient presented with arm shari and found to have rhabdomyolysis. Significant pain in right shoulder, likely associated myositis TCK was 15K but better with IVF and now Lasix. TCK at 3K. patient is feeling better. Does have persistent right shoulder pain and swelling. Will check CT of the right shoulder to further evaluate. (2) Elevated LFTs: Code(s): R79.89 - Other specified abnormal findings of blood chemistry Status: Acute Assessment and Plan: Etiology felt related to the rhabdomyolysis. This occurred last admission. Hepatitis panel negative. LFTs are better today. 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 [place] related to myositis pain from rhabdo worsened after activity. Continue pain management. As above (5) Diabetes: Code(s): E11.9 - Type 2 diabetes mellitus without complications Status: Acute Assessment and Plan: A1c 8.4. The patient's blood glucose was reviewed on 07/07 Glucose remains reasonably well controlled. Continue AccuCheks covering with sliding scale. Hypoglycemia protocol available as needed. Continue to follow. parent educator consult ordered Plan DVT prophylaxis with SCDs Code status full code Subjective Date/time seen: 07/07/22 17:22 Interval history: 41yo male with hx of hospitalizations for rhabdo here for right shoulder pain and found again to have rhabdomyolysis. Feeling better. His right arm power has improved. Still limited range of motion To the right arm. No numbness or tingling in his fingers. No chest pain or shortness of breath. Exam Narrative: AF 132/80 85 18 96% ra Gen - NARD Chest - CTA bilaterally, nml RR CV - RRR S1/S2 Abd - Soft, NT/ND, Positive BS Back - right shoulder girdle founded with firm and tender upper trapezius Ext - No pedal edema. 2+ radial pulses Neuro - Normal tray filler. Supination and pronation normal. Biceps strength on the right was 4- out of 5. Normal sensation To the right hand. pain with limited passive range of motion to the right shoulder Psych - Nml mood and affect Skin - Warm and dry Objective Data Vital Signs Vital Signs: Vital Signs - 24 hr 07/06/22 21:03 07/06/22 20:00 07/07/22 05:01 Temperature 97.6 F 97.1 F L Pulse Rate 105 H 83 Respiratory Rate 16 18 Blood Pressure 145/88 H 136/97 H Pulse Oximetry 98 98 Oxygen Delivery Room Air 07/07/22 09:15 07/07/22 14:00 Temperature 97.1 F L Pulse Rate 85 Respiratory Rate 18 Blood Pressure 132/80 Pulse Oximetry 96 Oxygen Delivery Room Air Intake/Output Intake/Output: Intake & Output 07/04/22 07/05/22 07/06/22 07/07/22 23:59 23:59 23:59 23:59 Intake Total 7880 7710 5594 3630 Balance 7880 7710 5594 3630 Meds/Results Medications: Active Medications Generic Name Dose Route Start Last Admin Trade Name Freq PRN Reason Stop Dose Admin Dextrose 12.5 gm 07/03/22 23:14 Dextrose 50% 25 Gm/50 Ml Syringe IV PUSH PRN PRN Hypoglycemia Protocol Furosemide 20 mg 07/07/22 09:00 07/07/22 09:25 Furosemide Inj 40 Mg/4 Ml Vial IV PUSH 20 mg BID HORACE Administration Glucagon 1 mg 07/03/22 23:14 Glucagon For Inj 1 Mg Vial IM PRN PRN Hypoglycemia Protocol Glucose 15 gm 07/03/22 23:14 Glucose Oral Gel 15 Gm Of Glucse In 37.5 Gm Tube PO PRN PRN Hypoglycemia Protocol Hydromorphone HCl 1 mg 07/03/22 16:09 07/07/22 15:48 Hydromorphone Hcl Inj (*Crx) 1 Mg/Ml Syr IV PUSH 1 mg Q3H PRN Administration Pain Rated 7-10 Lactated
[2022-07-07 21:29] LABS: Glucose Point of Care 145 mg/dl (65-105)
[2022-07-07 21:49] VITALS: BP 139/87; PULSE 82; RESP 16; TEMP 36.5; O2SAT 91
[2022-07-08] MEDS: HYDROmorphone HCL INJ (*CRX) 1 MG/ML SYR IV PUSH ×4 (00:33→17:50)
[2022-07-08 05:30] VITALS: BP 138/94; PULSE 78; RESP 16; TEMP 36.1; O2SAT 98
[2022-07-08] MEDS: LACTATED RINGERS 1,000 ML 150 ML IV CONT ×2 (05:37→12:26)
[2022-07-08 07:55] LABS: Glucose Point of Care 138 mg/dl (65-105)
[2022-07-08 08:16] LABS: Basophils Absolute Auto 0.1 K/mm3 (0.0-0.1); Basophils Percent Auto 0.7 % (0.2-1.2); Eosinophils Absolute Auto 0.4 K/mm3 (0-0.3); Eosinophils Percent Auto 3.5 % (0-4.4); Hematocrit 46.2 % (42.0-52.0); Hemoglobin 15.7 g/dL (14.0-18.0); Immature Granulocyte Absolute 0.06 K/mm3 (0.00-0.031); Immature Granulocyte Percent A 0.6 % (0-0.5); Lymphocytes Absolute Auto 2.68 K/mm3 (0.9-3.2); Lymphocytes Percent Auto 24.8 % (18.3-44.2); Mean Corpuscular Hemoglobin 31.1 pg (26-34); Mean Corpuscular Volume 91.5 fl (80-100); Monocytes Percent Auto 8.9 % (2.6-8.5); Neutrophils Absolute Auto 6.6 K/mm3 (1.3-6.7); Neutrophils Percent Auto 61.5 % (45.5-73.1); Platelet Count Result 313 k/mm3 (150-375); Red Blood Count 5.05 M/mm3 (4.6-6.20); Red Cell Distribution Width 12.5 % (11.5-14.5); White Blood Count 10.8 K/mm3 (4.5-10.0)
[2022-07-08 08:39] LABS: Alanine Aminotransferase 104 U/L (6-50); Albumin Level 4.3 g/dL (3.5-5.1); Alkaline Phosphatase 75 U/L (38-126); Anion Gap 5 mmol/L (8-16); Aspartate Amino Transferase 91 U/L (17-59); Bilirubin,Total 0.7 mg/dL (0.2-1.3); Blood Urea Nitrogen 15 mg/dL (9-20); Calcium 8.9 mg/dL (8.4-10.2); Carbon Dioxide 29 mmol/L (22-30); Chloride 97 mmol/L (98-107); Estimated CRCL calculation 121 ml/min; Estimated Glomerular Filt Rate > 60; Glucose 149 mg/dL (65-110); Sodium 131 mmol/L (137-145)
[2022-07-08 08:44] LABS: Creatine Kinase 2299 U/L (55-170)
[2022-07-08] MEDS: FUROSEMIDE INJ 40 MG/4 ML VIAL 20 MG IV PUSH (08:47)
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
[2022-07-08 11:35] LABS: Glucose Point of Care 201 mg/dl (65-105)
[2022-07-08] MEDS: INSULIN ASPART (*BKC) 100 UNITS/ML SUB-Q (12:26)
[2022-07-08 16:52] LABS: Glucose Point of Care 136 mg/dl (65-105)
[2022-07-08 20:00] VITALS: PULSE 74; RESP 16; O2SAT 98
[2022-07-08 20:20] VITALS: BP 154/108; PULSE 74; TEMP 36.4; O2SAT 98
[2022-07-08] MEDS: FUROSEMIDE 40 MG TABLET PO (20:59)
[2022-07-08] MEDS: ACETAMINOPHEN 325 MG TABLET 650 MG PO (20:59)
[2022-07-08 21:55] LABS: Glucose Point of Care 138 mg/dl (65-105)
[2022-07-08 23:56] LABS: Add Urine Microscopic? YES; Appearance Urine Clear (Clear); Bilirubin Urine Negative (Negative); Blood Urine Trace-intact (Negative); Color Urine Yellow (Yellow); Glucose Urine UA Negative (Negative); Ketones Urine Negative (Negative); Leukocyte Esterase Ur Negative LEU/UL (NEGATIVE); Nitrate Urine Negative (Negative); Protein Urine Negative (Negative); Urobilinogen Urine 0.2 mg/dL (<2.0)
[2022-07-08 23:59] LABS: Mucus Urine Rare /lpf; RBC Urine 0-2 /hpf (0-2); WBC Urine 0-3 /hpf (0-3)
[2022-07-09] MEDS: ACETAMINOPHEN 325 MG TABLET 650 MG PO (02:41)
[2022-07-09 06:00] VITALS: BP 120/88; PULSE 74; RESP 18; TEMP 36.2; O2SAT 98
[2022-07-09 07:55] LABS: Creatine Kinase 1273 U/L (55-170)
[2022-07-09 08:10] LABS: Glucose Point of Care 169 mg/dl (65-105)
[2022-07-09 12:33] LABS: Glucose Point of Care 141 mg/dl (65-105)
--- NOTE | 2022-07-09 13:08 | PM.DS ---
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 Please see H&P for details. Hospital Course: Patient presented with right arm pain and found to have rhabdomyolysis. Significant pain in right shoulder, likely associated myositis. TCK was 15K but better with IVF. Lasix added. TCK down to 1.3K.? UA the day before discharge showing no RBCs and trace-intact blood. He also had elevated LFTs felt related to the rhabdomyolysis.? This occurred last admission. Hepatitis panel negative. For the right shoulder, shoulder xray negative. [place] related to myositis pain from rhabdo worsened after activity. CT of the right shoulder showing osteoarthritis but no fluid collections or other concerning findings. A1c 8.4.? The patient's blood glucose was monitored with AccuCheks covering with sliding scale.? Hypoglycemia protocol was available as needed.? Metformin is cleared through the kidney but can cause hepatotoxic so we held off on this medications. Amaryl can also cause hepatotoxic. He also has limited resources. Plan for patient to follow up with his PCP for further treatment of his diabetes. Repeat labs as outpatient. He overall did well and was able to be discharged home on 07/09/22 Status at Discharge Cognitive/behavioral status at discharge: stable Time Spent with Patient Time attestation: Total time spent providing and/or coordinating discharge services: 35 minutes Time spent: Greater than 30 minutes Exam Narrative: AF 120/88 74 18 98% ra Gen - NARD Chest - CTA bilaterally, nml RR CV - RRR S1/S2 Abd - Soft, NT/ND, Positive BS Back - right shoulder ROM improving Ext - No pedal edema Psych - Nml mood and affect Skin - Warm and dry DS: Data Data Completed and Pending Labs on day of discharge: Labs from last 24 hours 07/09/22 07/09/22 07/09/22 12:08 08:08 06:59 POC Capillary Glucose 141 H 169 H Total Creatine Kinase 1273 H Urine Color Urine Appearance Urine pH Ur Specific [place] Urine Protein Urine Glucose (UA) Urine Ketones Ur Blood (Man) Urine Nitrate Urine Bilirubin Urine Urobilinogen Ur Leukocyte Esterase Urine RBC Urine WBC Urine Mucus 07/08/22 07/08/22 07/08/22 23:49 21:52 16:50 POC Capillary Glucose 138 H 136 H Total Creatine Kinase Urine Color Yellow Urine Appearance Clear Urine pH 6.0 Ur Specific [place] 1.010 Urine Protein Negative Urine Glucose (UA) Negative Urine Ketones Negative Ur Blood (Man) Trace-intact Urine Nitrate Negative Urine Bilirubin Negative Urine Urobilinogen 0.2 Ur Leukocyte Esterase Negative Urine RBC 0-2 Urine WBC 0-3 Urine Mucus Rare Discharge Plan Discharge Attending physician on discharge: Chuck Fagan Consulting providers: Timothy Cueto Discharging Clinician: Chuck Fagan Anticipated Discharge Date/Time: 07/09/22 13:25 Patient Disposition: Home, Self-Care Activity: as tolerated and other - see discharge instructions Diet: diabetic Discharge Instructions: Light duty for work until seen by your doctor. Contact your doctor or call 911 and come to the Emergency Room if you have increasi
== END 2022-07-09 13:52 | disposition home or self-care (01) | DRG 423 ==
LOC: ANHED 06:39 → ANH3MEDSUR 10:05
PROVIDERS: Student in an Organized Health Care Education/Training Program; Admitting Provider Internal Medicine; Emergency Provider Emergency Medicine; Visit Provider Internal Medicine
DX: E74.04 McArdle disease (principal); M62.82 Rhabdomyolysis; M60.811 Other myositis, right shoulder; E87.1 Hypo-osmolality and hyponatremia; E11.9 Type 2 diabetes mellitus without complications; Z20.822 Contact with and (suspected) exposure to COVID-19; Z87.891 Personal history of nicotine dependence
CPT/HCPCS: 36415; 71046; 73030; 73200; 80053; 80074; 81001; 82550; 82948; 83036; 83690; 84484; 85025; 85610; 85730; 87636; 93005; 96361; 96374; 96375; 96376; 97161; 97530; 99285; A9270; G0378; G0379; J1170; J1815; J1885; J1940; J7030; J7120

== ENCOUNTER 2023-07-07 12:59 | Emergency (ER) | payer SELFPAY ==
--- NOTE | ~2023-07-07 | XR_ITS ---
Left Knee Technique: AP, lateral, and oblique views were obtained. Clinical History: Pain Findings: No fracture or dislocation is seen. Osseous alignment is anatomic. Joint spaces are preserv ed without degenerative or erosive change. Soft tissues are unremarkable. No joint effusion is seen. Impression: Unremarkable left knee radiographs. Reviewed, dictated and finalized at [facility]. OR RELATIONSHIP MANAGER Impression: Unremarkable left knee radiographs.
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
[2023-07-07 13:01] VITALS: BP 164/108; PULSE 114; RESP 20; TEMP 36.4; O2SAT 94
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
[2023-07-07 16:08] LABS: Basophils Absolute Auto 0.1 K/mm3 (0.0-0.1); Basophils Percent Auto 0.9 % (0.2-1.2); Eosinophils Absolute Auto 0.3 K/mm3 (0-0.3); Eosinophils Percent Auto 2.5 % (0-4.4); Hematocrit 49.3 % (42.0-52.0); Immature Granulocyte Absolute 0.06 K/mm3 (0.00-0.031); Immature Granulocyte Percent A 0.5 % (0-0.5); Lymphocytes Percent Auto 37.3 % (18.3-44.2); Mean Corpuscular HGB Conc 34.5 g/dl (32-36); Mean Corpuscular Hemoglobin 30.7 pg (26-34); Mean Platelet Volume 8.8 fl (7.4-10.4); Monocytes Absolute Auto 0.8 K/mm3 (0.1-0.6); Monocytes Percent Auto 6.7 % (2.6-8.5); Neutrophils Absolute Auto 6.2 K/mm3 (1.3-6.7); Neutrophils Percent Auto 52.1 % (45.5-73.1); Platelet Count Result 320 k/mm3 (150-375); Red Blood Count 5.54 M/mm3 (4.6-6.20); Red Cell Distribution Width 12.8 % (11.5-14.5); White Blood Count 11.8 K/mm3 (4.5-10.0)
[2023-07-07] MEDS: ACETAMINOPHEN 325 MG TABLET 650 MG PO (16:11)
[2023-07-07 16:17] LABS: Alanine Aminotransferase 104 U/L (6-50); Albumin Level 4.8 g/dL (3.5-5.1); Alkaline Phosphatase 76 U/L (38-126); Anion Gap 7 mmol/L (8-16); Aspartate Amino Transferase 65 U/L (17-59); Bilirubin,Total 0.7 mg/dL (0.2-1.3); Blood Urea Nitrogen 12 mg/dL (9-20); Calcium 9.9 mg/dL (8.4-10.2); Carbon Dioxide 26 mmol/L (22-30); Chloride 103 mmol/L (98-107); Estimated CRCL calculation 126 ml/min; Estimated Glomerular Filt Rate > 60; Glucose 154 mg/dL (65-110); Potassium 4.1 mmol/L (3.4-5.0); Sodium 136 mmol/L (137-145)
[2023-07-07 16:19] LABS: Appearance Urine Clear (Clear); Bilirubin Urine Negative (Negative); Blood Urine Negative (Negative); Color Urine Yellow (Yellow); Glucose Urine UA 3+ mg/dL (Negative); Ketones Urine Negative (Negative); Leukocyte Esterase Ur Negative LEU/UL (Negative); Nitrate Urine Negative (Negative); Protein Urine Negative (Negative); Specific Grav Ur 1.025 (1.001-1.035); Urobilinogen Urine 0.2 mg/dL (<2.0)
[2023-07-07 16:21] LABS: Estimated CRCL calculation 113 ml/min; Estimated Glomerular Filt Rate > 60
[2023-07-07 16:49] LABS: Add Urine Microscopic? NO
[2023-07-07 18:06] VITALS: BP 160/100; PULSE 90; RESP 20; TEMP 36.6; O2SAT 98
== END 2023-07-07 17:55 | disposition home or self-care (01) ==
PROVIDERS: Emergency Provider Student in an Organized Health Care Education/Training Program
DX: S80.02XA Contusion of left knee, initial encounter (principal); S30.1XXA Contusion of abdominal wall, initial encounter; E11.9 Type 2 diabetes mellitus without complications; Z87.891 Personal history of nicotine dependence; Y04.2XXA Assault by strike against or bumped into by another person, initial encounter; Y92.61 Building [any] under construction as the place of occurrence of the external cause
CPT/HCPCS: 36415; 73564; 74177; 80053; 81003; 85025; 99284; A9270; Q9967